=== PATIENT | male | born 1970 | race Caucasian/White ===

== ENCOUNTER 2018-03-17 12:13 | Observation (INO) | payer MEDICARE ==
[2018-03-17] VITALS (8 sets, daily range): BP systolic 107–129; BP diastolic 72–87; PULSE 61–83; RESP 16–20; TEMP 97.9–98.3; O2SAT 94–98
[~2018-03-17] VITALS: Ht 182.9 cm; Wt 69.0 kg
[~2018-03-17 12:13] MED LIST: ADVA250A INH; ALBU1AER INH; ATAZ1TAB PO; DUONI NEB; LEVA500T PO; METH500T3 PO; TRUVTAB2 PO
[2018-03-17] MEDS ORDERED: ABAC1TAB3 PO (12:22)
[2018-03-17] MEDS ORDERED: SODIUM CHLOR 0.9% 1000 ML INJ 1,000 ML IV SCH (12:22)
[2018-03-17] MEDS ORDERED: PANTOPRAZOLE SODIUM 40 MG VIAL IVP ONE (12:30)
[2018-03-17] MEDS ORDERED: SODIUM CHLORIDE 0.9% FLUSH 10 ML FLUSH IVF PRN ×2 (12:30)
--- NOTE | 2018-03-17 12:51 | RADRPT ---
EXAM DATE/TIME: 03/17/2018 12:37 [facility] COMPARISON: CHEST SINGLE AP, April 30, 2016, 23:49. INDICATIONS : Short of breath. MEDICAL HISTORY : Chronic obstructive pulmonary disease. SURGICAL HISTORY : None. ENCOUNTER: Initial ACUITY: 2 days PAIN SCORE: 8/10 LOCATION: Bilateral chest FINDINGS: A single view of the chest demonstrates the lungs to be symmetrically aerated without evidence of mas s, infiltrate or effusion. The cardiomediastinal contours are unremarkable. Osseous structures are intact. Multiple surgical clips in the upper left abdomen status post apparent splenectomy. CONCLUSION: Stable appearance with no acute disease. Zackery Infante MD on March 17, 2018 at 12:49 Board Certified Radiologist. This report was verified electronically.
[2018-03-17 12:53] LABS: INTERNATIONAL NORMALIZED RATIO 1.1 RATIO; PROTHROMBIN TIME - PATIENT 10.9 SEC (9.8-11.6)
--- NOTE | 2018-03-17 13:03 | PD ---
HPI Chief Complaint: GI Complaint Time Seen by Provider: 12:22 Travel History International Travel<30 days: No Contact w/Intl Traveler<30days: No Traveled to known affect area: No History of Present Illness HPI Patient comes emergency department complaining of syncopal episode that occurred shortly prior to arrival. Patient reports he has had a couple syncopal episodes in the past several days. Patient reports feeling fatigue and bright red blood per rectum. Patient reports had similar in the past secondary to thrombocytopenia. Patient reports he is HIV and hepatitis C positive. Patient reports taking his medications as prescribed and his last viral load was undetectable per patient. Patient complaining of chronic right upper quadrant pain is gotten progressively worse over the past couple of days. Describes pain is a sharp stabbing pain is worse to palpation. Reports pain radiates throughout his abdomen. Denies any nausea, vomiting, chest pain or shortness breath, fevers, headache, neck pain, or change in bladder. PFSH Past Medical History Arthritis: Yes Asthma: No Autoimmune Disease: Yes (HIV) Blood Disorders: Yes (THROMBOCYTOPENIA, HIV +) Anxiety: Yes Depression: No Heart Rhythm Problems: No Cancer: No Cardiovascular Problems: Yes High Cholesterol: No Chemotherapy: No Chest Pain: Yes Congestive Heart Failure: No COPD: Yes Cerebrovascular Accident: No Diabetes: No Diminished Hearing: No Endocrine: No Gastrointestinal Disorders: No GERD: No Glaucoma: No Genitourinary: No Headaches: No Hepatitis: Yes (C) Hiatal Hernia: No Hypertension: No Immune Disorder: Yes (HIV ) Implanted Vascular Access Dvce: No Kidney Stones: No Musculoskeletal: Yes Neurologic: Yes Psychiatric: Yes Reproductive: No Respiratory: Yes (COPD) Immunizations Current: Yes Migraines: Yes Myocardial Infarction: No Pneumonia: Yes Radiation Therapy: No Renal Failure: No Seizures: No Sickle Cell Disease: No Sleep Apnea: Yes Thyroid Disease: No Ulcer: No Tetanus Vaccination: < 5 Years Influenza Vaccination: Yes PNEUMOCCOCAL Vaccine (Year): 2 Past Surgical History Abdominal Surgery: Yes (SPLENECTOMY) AICD: No Arteriovenous Shunt: No Cardiac Surgery: No Ear Surgery: No Endocrine Surgery: No Eye Surgery: No Genitourinary Surgery: No Gynecologic Surgery: No Insulin Pump: No Joint Replacement: No Neurologic Surgery: No Oral Surgery: No Pacemaker: No Thoracic Surgery: Yes Other Surgery: Yes (spleenectomy ) Social History Alcohol Use: Yes ("occasionally" ) Tobacco Use: Yes (1 PPD ) Substance Use: Yes (marijuana use daily ) Allergies-Medications (Allergen,Severity, Reaction): Coded Allergies: No Known Allergies (Unverified , 04/30/16) Reported Meds & Prescriptions Reported Meds & Active Scripts Active Reported Triumeq (Nxpebbat-Vhqylwexcmwd-Xwrvqxrmoo) 600-50-300 Mg Tab 1 Tab PO DAILY Hazardous agent; use appropriate precautions for handling & disposal. Review of Systems Except as stated in HPI: all other systems reviewed are Neg Physical Exam Narrative GENERAL: Well-developed, well nourished, in no acute distress, and non-ill appearing. SKIN: Focused skin assessment warm and dry. HEAD: Atraumatic. Normocephalic. EYES: Pupils equal and round. EOMI. No scleral icterus. No injection or drainage. ENT: No nasal bleeding or discharge. Mucous membranes pink and moist. NECK: Trachea midline. Supple. No nuclear rigidity. CARDIOVASCULAR: Regular rate and rhythm. No murmur appreciated. RESPIRATORY: No accessory muscle use. No respiratory distress. Clear to auscultation. Breath sounds equal bilaterally. GASTROINTESTINAL: Abdomen soft, nondistended, and no guarding. Hepatic and splenic margins not palpable. Normal bowel sounds x4. No pulsatile mass. Patient reports tenderness palpation throughout. MUSCULOSKELETAL: No obvious deformities. No clubbing. No cyanosis. No edema. Full range of motion. NEUROLOGICAL: Awake and alert. No obvious cranial nerve deficits. Motor grossly within normal limits. Normal speech. PSYCHIATRIC: Appropriate mood and affect; insight and judgment normal. Data Data Last Documented VS Vital Signs Date Time Temp Pulse Resp B/P (MAP) Pulse Ox O2 Delivery O2 Flow Rate FiO2 03/17/18 14:56 78 16 116/72 (87) 95 Room Air 03/17/18 12:17 98.3 Orders Orders Complete Blood Count With Diff (03/17/18 12:22) Comprehensive Metabolic Panel (03/17/18 12:22) Lipase (03/17/18 12:22) Ammonia (03/17/18 12:22) Prothrombin Time / Inr (Pt) (03/17/18 12:22) Act Partial Throm Time (Ptt) (03/17/18 12:22) Alcohol (Ethanol) (03/17/18 12:22) Urinalysis - C+S If Indicated (03/17/18 12:22) Type And Screen (03/17/18 12:22) Chest, Single Ap (03/17/18 12:22) Ecg Monitoring (03/17/18 12:22) Iv Access Insert/Monitor (03/17/18 12:22) Oximetry (03/17/18 12:22) Pantoprazole Inj (Protonix Inj) (03/17/18 12:30) Sodium Chlor 0.9% 1000 Ml Inj (Ns 1000 M (03/17/18 12:22) Sodium Chloride 0.9% Flush (Ns Flush) (03/17/18 12:30) Electrocardiogram (03/17/18 12:22) Ckmb (Isoenzyme) Profile (03/17/18 12:22) Troponin I (03/17/18 12:22) Sodium Chloride 0.9% Flush (Ns Flush) (03/17/18 12:30) Ct Brain W/O Iv Contrast(Rout) (03/17/18 ) Ct Abd/Pel W/O Iv Contrast (03/17/18 12:54) CKMB (03/17/18 12:30) CKMB% (03/17/18 12:30) Drug Screen, Random Urine (03/17/18 13:48) Admit Order (Ed Use Only) (03/17/18 ) Disciplinary Hearing Officer / Telemetry EVANGELINA.Q8H (03/17/18 15:21) Vital Signs (Adult) Q4H (03/17/18 15:21) Activity Bed Rest (03/17/18 15:21) Notify Dr: Other (03/17/18 15:21) Labs Laboratory Tests Test 03/17/18 12:30 White Blood Count 11.8 TH/MM3 Red Blood Count 5.93 MIL/MM3 Hemoglobin 18.3 GM/DL Hematocrit 53.5 % Mean Corpuscular Volume 90.3 FL Mean Corpuscular Hemoglobin 30.9 PG Mean Corpuscular Hemoglobin Concent 34.2 % Red Cell Distribution Width 13.8 % Platelet Count 32 TH/MM3 Mean Platelet Volume 10.5 FL Neutrophils (%) (Auto) 56.1 % Lymphocytes (%) (Auto) 27.7 % Monocytes (%) (Auto) 11.9 % Eosinophils (%) (Auto) 3.5 % Basophils (%) (Auto) 0.8 % Neutrophils # (Auto) 6.6 TH/MM3 Lymphocytes # (Auto) 3.3 TH/MM3 Monocytes # (Auto) 1.4 TH/MM3 Eosinophils # (Auto) 0.4 TH/MM3 Basophils # (Auto) 0.1 TH/MM3 CBC Comment AUTO DIFF Differential Comment AUTO DIFF CONFIRMED Prothrombin Time 10.9 SEC Prothromb Time International Ratio 1.1 RATIO Activated Partial Thromboplast Time 31.4 SEC Blood Urea Nitrogen 10 MG/DL Creatinine 1.36 MG/DL Random Glucose 72 MG/DL Total Protein 7.0 GM/DL Albumin 3.3 GM/DL Calcium Level 8.1 MG/DL Alkaline Phosphatase 141 U/L Aspartate Amino Transf (AST/SGOT) 56 U/L Alanine Aminotransferase (ALT/SGPT) 37 U/L Total Bilirubin 0.6 MG/DL Sodium Level 139 MEQ/L Potassium Level 3.8 MEQ/L Chloride Level 108 MEQ/L Carbon Dioxide Level 18.6 MEQ/L Anion Gap 12 MEQ/L Estimat Glomerular Filtration Rate 55 ML/MIN Ammonia 37 MCMOL/L Total Creatine Kinase 267 U/L Creatine Kinase MB 5.4 NG/ML Troponin I LESS THAN 0.02 NG/ML Lipase 203 U/L Ethyl Alcohol Level 29 MG/DL MDM Medical Decision Making Medical Screen Exam Complete: Yes Emergency Medical Condition: Yes Interpretation(s) EKG reviewed by Dr. Kaye shows sinus rhythm ventricular rate of 75. No STEMI. Differential Diagnosis GI bleed, syncope, ITP, substance abuse, closed head injury, intracranial hemorrhage Narrative Course Patient was seen and examined. IV was established patient placed on cardiac monitoring. Initial laboratory radiological studies were ordered. Patient was hydrated with IV fluids and given IV Protonix. Discussed patient with Dr. Kaye , who saw and evaluated patient and is in agreement plan of care and disposition. Discussed all findings with the exception of urinalysis, which patient has not provide a sample of yet, and plan of care with patient. Patient is agreeable for admission. All questions were answered. Discussed patient with hospitalist who is agreeable to admit the patient. Patient remained stable throughout ED course. HemaPrompt Point of Care Internal Pos. & Neg. Controls: Passed Fecal Specimen Occult Blood: Negative Comment Verbal consent was obtained. Digital rectal exam was performed. Stool specimen applied and test interpreted between 1 and 3 minutes of application and the result was negative. Internal Controls: Both positive and negative controls were validated. insurance account executive Estefany was present during this exam. External hemorrhoids were noted. Physician Communication Physician Communication [id number] Ramos, who is agreeable to admit the patient. Diagnosis Primary Impression: Syncope Qualified Codes: R55 - Syncope and collapse Additional Impressions: Hematochezia Chronic ITP (idiopathic thrombocytopenia) Admitting Information Admitting Physician Requests: Observation Aubrey Henry March 17, 2018 13:03
[2018-03-17 13:06] LABS: AUTOMATED NEUTROPHIL # 6.6 TH/MM3 (1.8-7.7); BASOPHIL # 0.1 TH/MM3 (0-0.2); BASOPHIL % 0.8 % (0.0-2.0); EOSINOPHIL # 0.4 TH/MM3 (0-0.4); EOSINOPHIL % 3.5 % (0.0-4.0); HEMATOCRIT 53.5 % (39.0-51.0); HEMOGLOBIN 18.3 GM/DL (13.0-17.0); LYMPH % 27.7 % (9.0-44.0); LYMPHOCYTE # 3.3 TH/MM3 (1.0-4.8); MEAN CELL VOLUME 90.3 FL (80.0-100.0); MEAN CORPUSCULAR HEMOGLOBIN 30.9 PG (27.0-34.0); MEAN CORPUSCULAR HGB CONC 34.2 % (32.0-36.0); MEAN PLATELET VOLUME 10.5 FL (7.0-11.0); MONO % 11.9 % (0.0-8.0); MONOCYTE # 1.4 TH/MM3 (0-0.9); NEUT % 56.1 % (16.0-70.0); PLATELET COUNT 32 TH/MM3 (150-450); RED BLOOD COUNT 5.93 MIL/MM3 (4.50-5.90); RED CELL DISTRIBUTION WIDTH 13.8 % (11.6-17.2); WHITE BLOOD COUNT 11.8 TH/MM3 (4.0-11.0)
[2018-03-17 13:09] LABS: ALT (GPT) 37 U/L (12-78)
[2018-03-17 13:12] LABS: ALKALINE PHOSPHATASE 141 U/L (45-117); TOTAL BILIRUBIN ADULT 0.6 MG/DL (0.2-1.0); TROPONIN I LESS THAN 0.02 NG/ML (0.02-0.05)
[2018-03-17 13:14] LABS: ALBUMIN 3.3 GM/DL (3.4-5.0); AST (GOT) 56 U/L (15-37); BICARBONATE 18.6 MEQ/L (21.0-32.0); BLOOD UREA NITROGEN 10 MG/DL (7-18); CALCIUM 8.1 MG/DL (8.5-10.1); CHLORIDE 108 MEQ/L (98-107); CREATININE 1.36 MG/DL (0.60-1.30); GLOMERULAR FILTRATION RATE 55 ML/MIN (>89); GLUCOSE,RANDOM 72 MG/DL (74-106); SODIUM (NA) 139 MEQ/L (136-145)
--- NOTE | 2018-03-17 14:05 | PD ---
Physical Exam Date Seen by Provider: March 17, 2018 Data Data Last Documented VS Vital Signs Date Time Temp Pulse Resp B/P (MAP) Pulse Ox O2 Delivery O2 Flow Rate FiO2 03/17/18 12:25 94 Room Air 03/17/18 12:17 98.3 83 20 129/87 (101) Orders Orders Complete Blood Count With Diff (03/17/18 12:22) Comprehensive Metabolic Panel (03/17/18 12:) Lipase (03/17/18 12:) Ammonia (03/17/18:) Prothrombin Time / Inr (Pt) (03/17/18 12:) Act Partial Throm Time (Ptt) (03/17/18 12:) Alcohol (Ethanol) (03/17/18 12:) Urinalysis - C+S If Indicated (03/17/18 12:) Type And Screen (03/17/18 12:) Chest, Single Ap (03/17/18 12:) Ecg Monitoring (03/17/18 12:22) Iv Access Insert/Monitor (03/17/18 12:) Oximetry (03/17/18 12:22) Pantoprazole Inj (Protonix Inj) (03/17/18 12:30) Sodium Chlor 0.9% 1000 Ml Inj (Ns 1000 M (03/17/18 12:22) Sodium Chloride 0.9% Flush (Ns Flush) (03/17/18 12:30) Electrocardiogram (03/17/18 12:22) Ckmb (Isoenzyme) Profile (03/17/18 12:22) Troponin I (03/17/18 12:22) Sodium Chloride 0.9% Flush (Ns Flush) (03/17/18 12:30) Ct Brain W/O Iv Contrast(Rout) (03/17/18 ) Ct Abd/Pel W/O Iv Contrast (03/17/18 12:54) CKMB (03/17/18 12:30) CKMB% (03/17/18 12:30) Drug Screen, Random Urine (03/17/18 13:48) Labs Laboratory Tests Test 03/17/18 12:30 White Blood Count 11.8 TH/MM3 Red Blood Count 5.93 MIL/MM3 Hemoglobin 18.3 GM/DL Hematocrit 53.5 % Mean Corpuscular Volume 90.3 FL Mean Corpuscular Hemoglobin 30.9 PG Mean Corpuscular Hemoglobin Concent 34.2 % Red Cell Distribution Width 13.8 % Platelet Count 32 TH/MM3 Mean Platelet Volume 10.5 FL Neutrophils (%) (Auto) 56.1 % Lymphocytes (%) (Auto) 27.7 % Monocytes (%) (Auto) 11.9 % Eosinophils (%) (Auto) 3.5 % Basophils (%) (Auto) 0.8 % Neutrophils # (Auto) 6.6 TH/MM3 Lymphocytes # (Auto) 3.3 TH/MM3 Monocytes # (Auto) 1.4 TH/MM3 Eosinophils # (Auto) 0.4 TH/MM3 Basophils # (Auto) 0.1 TH/MM3 CBC Comment AUTO DIFF Differential Comment AUTO DIFF CONFIRMED Prothrombin Time 10.9 SEC Prothromb Time International Ratio 1.1 RATIO Activated Partial Thromboplast Time 31.4 SEC Blood Urea Nitrogen 10 MG/DL Creatinine 1.36 MG/DL Random Glucose 72 MG/DL Total Protein 7.0 GM/DL Albumin 3.3 GM/DL Calcium Level 8.1 MG/DL Alkaline Phosphatase 141 U/L Aspartate Amino Transf (AST/SGOT) 56 U/L Alanine Aminotransferase (ALT/SGPT) 37 U/L Total Bilirubin 0.6 MG/DL Sodium Level 139 MEQ/L Potassium Level 3.8 MEQ/L Chloride Level 108 MEQ/L Carbon Dioxide Level 18.6 MEQ/L Anion Gap 12 MEQ/L Estimat Glomerular Filtration Rate 55 ML/MIN Ammonia 37 MCMOL/L Total Creatine Kinase 267 U/L Creatine Kinase MB 5.4 NG/ML Troponin I LESS THAN 0.02 NG/ML Lipase 203 U/L Ethyl Alcohol Level 29 MG/DL [facility] Medical Record Reviewed: Yes Supervised Visit with RICAROD: Yes Narrative Course I, Dr. Kaye, have reviewed the advance practice practitioner's documentation and am in agreement, met with the patient face to face, made the diagnosis, and the medical decision making was done by me. *My assessment and Findings: Syncope -patient is a 48-year-old male with history of hepatitis C, end-stage liver disease, HIV, thrombocytopenia secondary to ITP, presents to ER after syncopal episode today. Reports bright red blood in stools, reports that today , he has been having abdominal pain - pain worse to upper abdomen. CBC & BMP Diagram 03/17/18 12:30 Total Protein 7.0, Albumin 3.3 L, Calcium Level 8.1 L, Alkaline Phosphatase 141 H, Aspartate Amino Transf (AST/SGOT) 56 H, Alanine Aminotransferase (ALT/SGPT) 37, Total Bilirubin 0.6 Labs are reviewed, CT's pending Marva Kaye DO March 17, 2018 14:05
--- NOTE | 2018-03-17 14:32 | RADRPT ---
EXAM DATE/TIME: 03/17/2018 13:57 [facility] COMPARISON: CT ABDOMEN & PELVIS W CONTRAST, April 23, 2016, 21:10. INDICATIONS : Syncopal episode RADIATION DOSE: 56.35 CTDIvol (mGy) MEDICAL HISTORY : Cardiovascular disease. Hepatitis C. SURGICAL HISTORY : Splenectomy. ENCOUNTER: Initial ACUITY: 1 day PAIN SCALE: 0/10 LOCATION: cranial TECHNIQUE: Multiple contiguous axial images were obtained of the head. Using automated exposure control and adj ustment of the mA and/or kV according to patient size, radiation dose was kept as low as reasonably a chievable to obtain optimal diagnostic quality images. DICOM format image data is available electro nically for review and comparison. FINDINGS: CEREBRUM: The ventricles are normal for age. No evidence of midline shift, mass lesion, hemorrhage or acute in farction. No extra-axial fluid collections are seen. POSTERIOR FOSSA: The cerebellum and brainstem are intact. The 4th ventricle is midline. The cerebellopontine angle i s unremarkable. EXTRACRANIAL: The visualized portion of the orbits is intact. SKULL: The calvaria is intact. No evidence of skull fracture. CONCLUSION: 1. No acute intracranial abnormality identified. Rg Foreman MD on March 17, 2018 at 14:29 Board Certified Radiologist. This report was verified electronically.
--- NOTE | 2018-03-17 14:48 | RADRPT ---
EXAM DATE/TIME: 03/17/2018 13:59 [facility] COMPARISON: CT ABDOMEN & PELVIS W CONTRAST, April 23, 2016, 21:10. INDICATIONS : Blood in stool since yesterday ORAL CONTRAST: No oral contrast ingested. RADIATION DOSE: 6.64 CTDIvol (mGy) MEDICAL HISTORY : Cardiovascular disease. Hepatitis C. SURGICAL HISTORY : Splenectomy. ENCOUNTER: Initial ACUITY: 1 day PAIN SCALE: 0/10 LOCATION: Bilateral abdomen TECHNIQUE: Volumetric scanning of the abdomen and pelvis was performed. Using automated exposure control and ad justment of the mA and/or kV according to patient size, radiation dose was kept as low as reasonably achievable to obtain optimal diagnostic quality images. DICOM format image data is available electro nically for review and comparison. FINDINGS: LOWER LUNGS: There is dependent atelectasis bilaterally. LIVER: Homogeneous density without lesion. There is no dilation of the biliary tree. No calcified gallston es. SPLEEN: Multiple clips are present in the left upper quadrant reportedly related to splenectomy. There is res idual splenic tissue in the left upper quadrant, stable from the prior examination. PANCREAS: Within normal limits. KIDNEYS: Normal in size and shape. There is no mass, stone, or hydronephrosis. ADRENAL GLANDS: Within normal limits. VASCULAR: There is no aortic aneurysm. There is mild atherosclerotic disease. BOWEL/MESENTERY: The stomach, small bowel, and colon demonstrate no acute abnormality. There is no free intraperitone al air or fluid. ABDOMINAL WALL: Within normal limits. RETROPERITONEUM: There is no lymphadenopathy. BLADDER: No wall thickening or mass. REPRODUCTIVE: Within normal limits. INGUINAL: There is no lymphadenopathy or hernia. MUSCULOSKELETAL: There are mild degenerative changes of the lumbar spine. CONCLUSION: 1. No acute finding is identified on this noncontrast examination to explain the clinical symptoms. 2. Mild atherosclerotic disease. Jaden Adair MD on March 17, 2018 at 14:37 Board Certified Radiologist. This report was verified electronically.
[2018-03-17] MEDS ORDERED: NALOXONE HCL 0.4 MG/ML AMP IV PUSH PRN (16:15)
[2018-03-17] MEDS ORDERED: MAGNESIUM HYDROXIDE SUSP 30 ML CUP PO PRN (16:15)
[2018-03-17] MEDS ORDERED: SENNOSIDES 8.6 MG TAB PO PRN (16:15)
[2018-03-17] MEDS ORDERED: ONDANSETRON HCL 4 MG/2 ML VIAL IVP PRN (16:15)
[2018-03-17] MEDS ORDERED: LACTULOSE SYRUP 20 GM/30 ML CUP PO PRN (16:15)
[2018-03-17] MEDS ORDERED: BISACODYL 10 MG SUPP RECTAL PRN (16:15)
[2018-03-17] MEDS: NS + KCL 20 MEQ INJ 1,000 ML IV SCH (17:11)
--- NOTE | 2018-03-17 17:36 | HHI.HP ---
[facility]ician No Primary Care Physician Admission Diagnosis Syncope, hematochezia, ITP Diagnoses: (1) Acute kidney injury (2) Abdominal pain (3) Hematochezia (4) Chronic ITP (idiopathic thrombocytopenia) (5) Syncope (6) Hepatitis C (7) HIV (human immunodeficiency virus infection) (8) Tobacco use Chief Complaint: Syncope Travel History International Travel<30 Days: No Contact w/Intl Traveler <30 Da: No Traveled to Known Affected Are: No History of Present Illness The patient is a 48 year-old male who presented to the emergency department following a syncopal episode. He states that he has "blacked out" about 5 times in the past 3 days. He denies hitting his head. He states that the episodes occur when he stands up to walk. He feels lightheaded and then passes out. He states that he has not been eating well over the past week or so. He has had no appetite. He has had some nausea, but no vomiting. He denies diarrhea or constipation, but has had some bright red blood in his stool the last couple days. He has a history of hepatitis C and HIV, as well as chronic thrombocytopenia. He reports a weight loss of 10 pounds in the last week. He has diffuse abdominal pain, worse in the upper abdomen. Review of Systems Constitutional: COMPLAINS OF: Weight loss, DENIES: Fever, Chills, Night Sweats Eyes: DENIES: Blurred vision, Vision loss Ears, nose, mouth, throat: DENIES: Hearing loss Respiratory: DENIES: Cough, Wheezing, Sputum production, Shortness of breath Cardiovascular: COMPLAINS OF: Syncope, DENIES: Chest pain, Palpitations, Dyspnea on Exertion, Lower Extremity Edema Gastrointestinal: COMPLAINS OF: Bloody stools, Nausea, DENIES: Abdominal pain, Constipation, Diarrhea, Vomiting Genitourinary: DENIES: Urinary frequency, Urinary incontinence, Urgency, Hematuria, Dysuria, Nocturia Musculoskeletal: DENIES: Joint pain, Muscle aches Integumentary: DENIES: Pruritus, Rash Hematologic/lymphatic: DENIES: Bruising Neurologic: DENIES: Headache Past Family Social History Past Medical History HIV Thrombocytopenia Hepatitis C Anxiety Arthritis COPD Past Surgical History Splenectomy Left ankle surgery Reported Medications Triumeq (Xbhqmxzy-Vcqtluicvyto-Vdwjqxzffk) 600-50-300 Mg Tab 1 Tab PO DAILY Allergies: Coded Allergies: No Known Allergies (Unverified Allergy, Unknown, 03/17/18) Family History Denies significant family medical history Social History Smokes 1 pack per day. Admits to marijuana use. Does also admit to using cocaine last night. Reports a remote history of IV drug abuse, but not for "many years". Reports occasional alcohol use. Physical Exam Vital Signs Vital Signs Date Time Temp Pulse Resp B/P (MAP) Pulse Ox O2 Delivery O2 Flow Rate FiO2 03/17/18 16:31 03/17/18 14:56 78 16 116/72 (87) 95 Room Air 03/17/18 12:25 94 Room Air 03/17/18 12:17 98.3 83 20 129/87 (101) 94 Physical Exam GENERAL: Thin male in no acute distress. HEENT: Normocephalic, atraumatic. Pupils equal, round and reactive. Extraocular movements intact. No scleral icterus. No injection or drainage. Oropharynx is clear. Mucous membranes are somewhat dry. CARDIOVASCULAR: Regular rate and rhythm without murmurs, gallops, or rubs. RESPIRATORY: Clear to auscultation. No wheezes, rales, or rhonchi. Breathing is non-labored. GASTROINTESTINAL: Abdomen soft, nondistended. Tender to palpation diffusely without rebound or guarding, more tender in the upper abdomen. EXTREMITIES: No lower extremity edema. No calf tenderness. PSYCH: Alert and oriented x 3. Laboratory Laboratory Tests Test 03/17/18 12:30 White Blood Count 11.8 Red Blood Count 5.93 Hemoglobin 18.3 Hematocrit 53.5 Mean Corpuscular Volume 90.3 Mean Corpuscular Hemoglobin 30.9 Mean Corpuscular Hemoglobin Concent 34.2 Red Cell Distribution Width 13.8 Platelet Count 32 Mean Platelet Volume 10.5 Neutrophils (%) (Auto) 56.1 Lymphocytes (%) (Auto) 27.7 Monocytes (%) (Auto) 11.9 Eosinophils (%) (Auto) 3.5 Basophils (%) (Auto) 0.8 Neutrophils # (Auto) 6.6 Lymphocytes # (Auto) 3.3 Monocytes # (Auto) 1.4 Eosinophils # (Auto) 0.4 Basophils # (Auto) 0.1 CBC Comment AUTO DIFF Differential Comment AUTO DIFF CONFIRMED Prothrombin Time 10.9 Prothromb Time International Ratio 1.1 Activated Partial Thromboplast Time 31.4 Blood Urea Nitrogen 10 Creatinine 1.36 Random Glucose 72 Total Protein 7.0 Albumin 3.3 Calcium Level 8.1 Alkaline Phosphatase 141 Aspartate Amino Transf (AST/SGOT) 56 Alanine Aminotransferase (ALT/SGPT) 37 Total Bilirubin 0.6 Sodium Level 139 Potassium Level 3.8 Chloride Level 108 Carbon Dioxide Level 18.6 Anion Gap 12 Estimat Glomerular Filtration Rate 55 Ammonia 37 Total Creatine Kinase 267 Creatine Kinase MB 5.4 Troponin I LESS THAN 0.02 Lipase 203 Ethyl Alcohol Level 29 Result Diagram: 03/17/18 1230 03/17/18 1230 Imaging Last Impressions Abdomen/Pelvis CT 03/17/18 1254 Signed Impressions: Service Date/Time: Saturday, March 17, 2018 13:59 - CONCLUSION: 1. No acute finding is identified on this noncontrast examination to explain the clinical symptoms. 2. Mild atherosclerotic disease. Jaden Adair MD Chest X-Ray 03/17/18 1222 Signed Impressions: Service Date/Time: Saturday, March 17, 2018 12:37 - CONCLUSION: Stable appearance with no acute disease. Zackery Infante MD Head CT 03/17/18 0000 Signed Impressions: Service Date/Time: Saturday, March 17, 2018 13:57 - CONCLUSION: 1. No acute intracranial abnormality identified. Rg Foreman MD Caprini VTE Risk Assessment Caprini VTE Risk Assessment: No/Low Risk (score <= 1) Caprini Risk Assessment Model Point Value = 1 Point Value = 2 Point Value = 3 Point Value = 5 Age 41-60 Minor surgery BMI > 25 kg/m2 Swollen legs Varicose veins or History of unexplained or recurrent spontaneous Oral contraceptives or hormone replacement Sepsis (< 1 month) Serious lung disease, including pneumonia (< 1 month) Abnormal pulmonary function Acute myocardial infarction Congestive heart failure (< 1 month) History of inflammatory bowel disease Medical patient at bed rest Age 61-74 Arthroscopic surgery Major open surgery (> 45 min) Laparoscopic surgery (> 45 min) Malignancy Confined to bed (> 72 hours) Immobilizing plaster cast Central venous access Age >= 75 History of VTE Family history of VTE Factor V Leiden Prothrombin [id number] Lupus anticoagulant Anticardiolipin antibodies Elevated serum homocysteine Heparin-induced thrombocytopenia Other congenital or acquired thrombophilia Stroke (< 1 month) Elective arthroplasty Hip, pelvis, or leg fracture Acute spinal cord injury (< 1 month) Prophylaxis Regimen Total Risk Factor Score Risk Level Prophylaxis Regimen 0-1 Low Early ambulation 2 Moderate Order ONE of the following: *Sequential Compression Device (SCD) *Heparin 5000 units SQ BID 3-4 Higher Order ONE of the following medications: *Heparin 5000 units SQ TID *Enoxaparin/Lovenox 40 mg SQ daily (WT < 150 kg, CrCl > 30 mL/min) *Enoxaparin/Lovenox 30 mg SQ daily (WT < 150 kg, CrCl > 10-29 mL/min) *Enoxaparin/Lovenox 30 mg SQ BID (WT < 150 kg, CrCl > 30 mL/min) AND/OR *Sequential Compression Device (SCD) 5 or more Highest Order ONE of the following medications: *Heparin 5000 units SQ TID (Preferred with Epidurals) *Enoxaparin/Lovenox 40 mg SQ daily (WT < 150 kg, CrCl > 30 mL/min) *Enoxaparin/Lovenox 30 mg SQ daily (WT < 150 kg, CrCl > 10-29 mL/min) *Enoxaparin/Lovenox 30 mg SQ BID (WT < 150 kg, CrCl > 30 mL/min) AND *Sequential Compression Device (SCD) Assessment and Plan Assessment and Plan 1. Syncopal episode: Possibly secondary to dehydration. Check echocardiogram. Monitor on telemetry. Check serial cardiac enzymes and EKGs. 2. Acute kidney injury: Patient appears to be dehydrated. He has had poor oral intake over the past week with decreased appetite, nausea, abdominal pain, and weight loss. Start IV fluids. Monitor BUN and creatinine. 3. Thrombocytopenia: Patient reports chronic ITP. Monitor labs. Monitor for worsening bleeding episodes. 4. Hematochezia: Patient reports bright red blood with bowel movements. Consult GI. 5. HIV: Continue home medications. 6. Hepatitis C: Patient reports no treatment. GI consultation requested. 7. DVT prophylaxis: SCDs, KARTHIKEYAN knox. Avoid chemical prophylaxis secondary to hematochezia, thrombocytopenia. 8. Polysubstance abuse: He admits to marijuana and cocaine use. Patient was counseled. 9. Tobacco abuse: Patient was counseled regarding smoking cessation. Problem Qualifiers (1) Syncope: Qualified Codes: R55 - Syncope and collapse Juan Carlos Ramos MD March 17, 2018 17:36
[2018-03-17] MEDS ORDERED: HYDR-3366 PO (18:04)
[2018-03-17] MEDS ORDERED: ALBUAER3 INH (18:29)
[2018-03-17] MEDS ORDERED: ADVA250A INH ×2 (18:29)
[2018-03-17] MEDS ORDERED: CYCL5TAB PO (18:29)
[2018-03-17] MEDS ORDERED: DIAZ10 PO (18:29)
[2018-03-17 19:31] LABS: TROPONIN I LESS THAN 0.02 NG/ML (0.02-0.05)
[2018-03-17] MEDS: DOCUSATE SODIUM 50 MG/SENNA 8.6 MG TAB PO SCH (21:36)
--- NOTE | 2018-03-17 22:54 | EKG ---
Date Performed: 03/17/2018 Time Performed: 12:55:07 PTAGE: 48 years EKG: Sinus rhythm BORDERLINE RIGHT AXIS DEVIATION SEPTAL MYOCARDIAL INFARCTION When compared to previous tracing, ante rior T wave changes Seen on previous tracing, are less prominant. ABNORMAL ECG PREVIOUS TRACING : 05/01/2016 00.50 DOCTOR: Adal Carmona Interpretating Date/Time 03/17/2018 17:50:30
[2018-03-18] VITALS (9 sets, daily range): BP systolic 112–132; BP diastolic 72–93; PULSE 56–76; RESP 16–19; TEMP 97.6–99.1; O2SAT 92–96
[2018-03-18 02:51] LABS: TROPONIN I LESS THAN 0.02 NG/ML (0.02-0.05)
[2018-03-18] MEDS: NS + KCL 20 MEQ INJ 1,000 ML IV SCH ×2 (05:11→18:49)
[2018-03-18 07:55] LABS: AUTOMATED NEUTROPHIL # 3.6 TH/MM3 (1.8-7.7); BASOPHIL # 0.1 TH/MM3 (0-0.2); BASOPHIL % 1.4 % (0.0-2.0); EOSINOPHIL # 0.5 TH/MM3 (0-0.4); EOSINOPHIL % 5.5 % (0.0-4.0); HEMATOCRIT 51.1 % (39.0-51.0); HEMOGLOBIN 17.4 GM/DL (13.0-17.0); LYMPH % 34.4 % (9.0-44.0); MEAN CELL VOLUME 90.2 FL (80.0-100.0); MEAN CORPUSCULAR HEMOGLOBIN 30.7 PG (27.0-34.0); MEAN PLATELET VOLUME 10.3 FL (7.0-11.0); MONO % 16.6 % (0.0-8.0); MONOCYTE # 1.4 TH/MM3 (0-0.9); NEUT % 42.1 % (16.0-70.0); PLATELET COUNT 30 TH/MM3 (150-450); RED BLOOD COUNT 5.67 MIL/MM3 (4.50-5.90); RED CELL DISTRIBUTION WIDTH 13.8 % (11.6-17.2); WHITE BLOOD COUNT 8.7 TH/MM3 (4.0-11.0)
[2018-03-18 08:27] LABS: ALBUMIN 2.6 GM/DL (3.4-5.0); ALKALINE PHOSPHATASE 121 U/L (45-117); ALT (GPT) 33 U/L (12-78); AST (GOT) 45 U/L (15-37); BICARBONATE 22.2 MEQ/L (21.0-32.0); BLOOD UREA NITROGEN 14 MG/DL (7-18); CALCIUM 7.7 MG/DL (8.5-10.1); CHLORIDE 112 MEQ/L (98-107); GLOMERULAR FILTRATION RATE 79 ML/MIN (>89); GLUCOSE,RANDOM 74 MG/DL (74-106); SODIUM (NA) 141 MEQ/L (136-145); TOTAL BILIRUBIN ADULT 0.5 MG/DL (0.2-1.0); TOTAL PROTEIN 5.8 GM/DL (6.4-8.2)
--- NOTE | 2018-03-18 10:15 | PD.CONS ---
HPI History of Present Illness This is a 48 year old M with PMH significant for HIV with reports of undetectable viral load, Hep C naive to treatment, cirrhosis, chronic ITP with history of splenectomy, and history of GIB. Pt presented to the ER yesterday by [facility] following a syncopal episode at home, pt reports having multiple dizzy episodes and syncopal episodes over the past couple days. At this time pt is complaining of pain to his RUQ area that he states is his liver hurting. States pain is chronic described as aching with intermittent sharp pain. Denies pain in relation to PO intake. He has known cirrhosis and Hepatitis C, treatment naive. Also complaining of chronic nausea, denies emesis. Reports he has been having BRB in his stool for the past couple days, has had this issue in the past when his platelets are really low. Was previously followed by hematology and has been on Nplate and IVIG in the past. Our service has previously followed pt for same and notes that rectal bleeding resolved with resolution of platelet count. Pt also complaining of a 10 lb weight loss over the past two weeks with decrease in appetite. Of note, pt released from nursing home on January 19 after 21 month sentence. Reports history of IVDU, has 2 tattoos both done in nursing home. Admits to continued ETOH use, states has some beer once a week, last ETOH intake was two nights ago. Currently smokes 1 PPD. Also admits to marijuana use, denies any other illicit drugs. Denies family history of colon cancer. (Inessa Lunsford) PFSH Past Medical History HIV Thrombocytopenia Hepatitis C Anxiety Arthritis COPD Past Surgical History Splenectomy Left ankle surgery (Inessa Lunsford) Coded Allergies: bee venom protein (honey bee) (Verified Allergy, Severe, Anaphylaxis, ) No Known Allergies (Unverified Allergy, Unknown, 03/17/18) Family History Denies significant family medical history Social History Smokes 1 pack per day. Admits to marijuana use. Reports a remote history of IV drug abuse, but not for "many years". Reports alcohol use, once a week. (Inessa Lunsford) Review of Systems Gastrointestinal: COMPLAINS OF: Abdominal pain, Bloody stools, Nausea, DENIES: Black stools, Constipation, Diarrhea, Vomiting, Difficulty Swallowing, Odynophagia, Swelling of Abdomen, Heartburn, Hematemesis (Inessa Lunsford) GI Exam Vitals I&O Vital Signs Date Time Temp Pulse Resp B/P (MAP) Pulse Ox O2 Delivery O2 Flow Rate FiO2 03/18/18 08:33 97.8 73 18 117/75 (89) 96 03/18/18 04:21 97.9 56 16 112/76 (88) 93 03/18/18 02:20 62 03/17/18 22:48 97.9 61 16 118/74 (89) 95 03/17/18 20:16 97.9 78 16 107/74 (85) 95 03/17/18 19:21 98 03/17/18 17:29 97.9 68 18 109/79 (89) 96 03/17/18 17:11 95 21 03/17/18 16:31 03/17/18 14:56 78 16 116/72 (87) 95 Room Air 03/17/18 12:25 94 Room Air 03/17/18 12:17 98.3 83 20 129/87 (101) 94 I/O 03/17/18 03/17/18 03/17/18 03/18/18 03/18/18 03/18/18 07:00 15:00 23:00 07:00 15:00 23:00 Intake Total 1000 ml Balance 1000 ml Intake IV Total 1000 ml Imaging Last Impressions Abdomen/Pelvis CT 03/17/18 1254 Signed Impressions: Service Date/Time: Saturday, March 17, 2018 13:59 - CONCLUSION: 1. No acute finding is identified on this noncontrast examination to explain the clinical symptoms. 2. Mild atherosclerotic disease. Jaden Adair MD Chest X-Ray 03/17/18 1222 Signed Impressions: Service Date/Time: Saturday, March 17, 2018 12:37 - CONCLUSION: Stable appearance with no acute disease. Zackery Infante MD Head CT 03/17/18 0000 Signed Impressions: Service Date/Time: Saturday, March 17, 2018 13:57 - CONCLUSION: 1. No acute intracranial abnormality identified. Rg Foreman MD Laboratory Test 03/17/18 12:30 03/17/18 17:41 03/18/18 01:41 03/18/18 07:12 White Blood Count 11.8 TH/MM3 8.7 TH/MM3 Red Blood Count 5.93 MIL/MM3 5.67 MIL/MM3 Hemoglobin 18.3 GM/DL 17.4 GM/DL Hematocrit 53.5 % 51.1 % Mean Corpuscular Volume 90.3 FL 90.2 FL Mean Corpuscular Hemoglobin 30.9 PG 30.7 PG Mean Corpuscular Hemoglobin Concent 34.2 % 34.0 % Red Cell Distribution Width 13.8 % 13.8 % Platelet Count 32 TH/MM3 30 TH/MM3 Mean Platelet Volume 10.5 FL 10.3 FL Neutrophils (%) (Auto) 56.1 % 42.1 % Lymphocytes (%) (Auto) 27.7 % 34.4 % Monocytes (%) (Auto) 11.9 % 16.6 % Eosinophils (%) (Auto) 3.5 % 5.5 % Basophils (%) (Auto) 0.8 % 1.4 % Neutrophils # (Auto) 6.6 TH/MM3 3.6 TH/MM3 Lymphocytes # (Auto) 3.3 TH/MM3 3.0 TH/MM3 Monocytes # (Auto) 1.4 TH/MM3 1.4 TH/MM3 Eosinophils # (Auto) 0.4 TH/MM3 0.5 TH/MM3 Basophils # (Auto) 0.1 TH/MM3 0.1 TH/MM3 CBC Comment AUTO DIFF AUTO DIFF Differential Comment AUTO DIFF CONFIRMED AUTO DIFF CONFIRMED Prothrombin Time 10.9 SEC Prothromb Time International Ratio 1.1 RATIO Activated Partial Thromboplast Time 31.4 SEC Blood Urea Nitrogen 10 MG/DL 14 MG/DL Creatinine 1.36 MG/DL 1.00 MG/DL Random Glucose 72 MG/DL 74 MG/DL Total Protein 7.0 GM/DL 5.8 GM/DL Albumin 3.3 GM/DL 2.6 GM/DL Calcium Level 8.1 MG/DL 7.7 MG/DL Alkaline Phosphatase 141 U/L 121 U/L Aspartate Amino Transf (AST/SGOT) 56 U/L 45 U/L Alanine Aminotransferase (ALT/SGPT) 37 U/L 33 U/L Total Bilirubin 0.6 MG/DL 0.5 MG/DL Sodium Level 139 MEQ/L 141 MEQ/L Potassium Level 3.8 MEQ/L 3.9 MEQ/L Chloride Level 108 MEQ/L 112 MEQ/L Carbon Dioxide Level 18.6 MEQ/L 22.2 MEQ/L Anion Gap 12 MEQ/L 7 MEQ/L Estimat Glomerular Filtration Rate 55 ML/MIN 79 ML/MIN Ammonia 37 MCMOL/L Total Creatine Kinase 267 U/L 211 U/L 176 U/L Creatine Kinase MB 5.4 NG/ML Troponin I LESS THAN 0.02 NG/ML LESS THAN 0.02 NG/ML LESS THAN 0.02 NG/ML Lipase 203 U/L Ethyl Alcohol Level 29 MG/DL Physical Examination HEENT: Normocephalic; atraumatic CHEST: Even/unlabored CARDIAC: RRR ABDOMEN: Soft, nondistended, upper abdominal tenderness; bowel sounds active EXTREMITIES: No clubbing, cyanosis, or edema. SKIN: Normal; no rash; no jaundice. 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 (Inessa Lunsford) Assessment and Plan Plan Assessment: - Hematochezia- reports of BRBPR mixed in the stool for the past couple days. History of GIB secondary to low platelets. States last colonoscopy was done at this facility 3 years ago, I can not find these records in his chart. H/H currently 17.4/51.1 Platelets- 30 INR-1.1 - Chronic ITP- Previously followed by hematology and has been on Nplate and IVIG in the past, per previous records pt has been noncompliant with treatment. History of splenectomy - Cirrhosis with hepatitis C, treatment naive History of IVDU, states no use in multiple years. Has 2 tattoos, both done in nursing home. Denies high risk sexual behavior. Still drinks ETOH, reports once a week, admits to last ETOH was 2 nights ago - Weight loss- reports 10 lbs over the past two weeks, unintentional but reports a poor appetite CT abdomen and pelvis W/O IV contrast (03/17) --> No acute findings are identified on this noncontrast examination to explain the clinical symptoms. Mild arteriosclerotic disease. Liver: Homogeneous density without lesion. There is no dilation of the biliary tree. No calcified gallstones. - HIV- reports recent viral load and was undetectable - Syncopal episodes- reports multiple syncopal episodes over the past couple days. Head CT negative Ammonia-37 Plan: Hepatitis panel Hep C genotype and quant Hematology consult to address platelets At this time no endoscopic procedures, will await hematology recommendations, possible scopes early next week pending recommendations and clinical course Monitor H/H Transfuse as needed AFP Further recommendations based on clinical course Pt has been seen and examined by myself and Dr. Peguero and this note is written on her behalf (Inessa Lunsford) Physician Comments seen, examined agree with above await hematology eval egd/colon tuesday cryoglobulins (America Peguero MD) Inessa Lunsford March 18, 2018 10:15 America Peguero MD March 18, 2018 17:56
[2018-03-18] MEDS: ABACAVIR SULFATE 300 MG TAB PO SCH (10:30)
[2018-03-18] MEDS: DOLUTEGRAVIR SODIUM 50 MG TAB PO SCH (10:30)
[2018-03-18] MEDS: DOCUSATE SODIUM 50 MG/SENNA 8.6 MG TAB PO SCH ×2 (10:30→20:33)
--- NOTE | 2018-03-18 12:29 | HHI.PR ---
Subjective Remarks Follow up for syncope, hematochezia, thrombocytopenia. The patient reports no BM overnight so far. He reports some dizziness upon standing, but denies any near syncopal episodes since his arrival. Denies any chest pain or shortness of breath. He states his abdomen is always sore but is slightly worse recently across bilateral upper quadrants. Denies nausea or vomiting. He tolerated oral intake last night. He has no other medical complaints at this time. Objective Vitals Vital Signs Date Time Temp Pulse Resp B/P (MAP) Pulse Ox O2 Delivery O2 Flow Rate FiO2 03/18/18 11:50 98.0 69 19 127/72 (90) 93 03/18/18 10:20 62 03/18/18 08:33 97.8 73 18 117/75 (89) 96 03/18/18 04:21 97.9 56 16 112/76 (88) 93 03/18/18 02:20 62 03/17/18 22:48 97.9 61 16 118/74 (89) 95 03/17/18 20:16 97.9 78 16 107/74 (85) 95 03/17/18 19:21 98 03/17/18 17:29 97.9 68 18 109/79 (89) 96 03/17/18 17:11 95 21 03/17/18 16:31 03/17/18 14:56 78 16 116/72 (87) 95 Room Air I/O 03/17/18 03/17/18 03/17/18 03/18/18 03/18/18 03/18/18 07:00 15:00 23:00 07:00 15:00 23:00 Intake Total 1000 ml Output Total 750 ml Balance 1000 ml -750 ml Intake IV Total 1000 ml Output Urine Total 750 ml Result Diagram: 03/18/18 0712 03/18/18 0712 Imaging Last Impressions Abdomen/Pelvis CT 03/17/18 1254 Signed Impressions: Service Date/Time: Saturday, March 17, 2018 13:59 - CONCLUSION: 1. No acute finding is identified on this noncontrast examination to explain the clinical symptoms. 2. Mild atherosclerotic disease. Jaden Adair MD Chest X-Ray 03/17/18 1222 Signed Impressions: Service Date/Time: Saturday, March 17, 2018 12:37 - CONCLUSION: Stable appearance with no acute disease. Zackery Infante MD Head CT 03/17/18 0000 Signed Impressions: Service Date/Time: Saturday, March 17, 2018 13:57 - CONCLUSION: 1. No acute intracranial abnormality identified. Rg Foreman MD Objective Remarks GENERAL: Well-nourished, well-developed middle aged male patient in [facility]. SKIN: Warm and dry. No rash. HEENT: Normocephalic. Atraumatic.Pupils equal and round. Mucous membranes pink and moist. CARDIOVASCULAR: Regular rate and rhythm. No murmur appreciated. RESPIRATORY: No accessory muscle use. Clear to auscultation. Breath sounds equal bilaterally. GASTROINTESTINAL: Abdomen soft, nondistended, diffuse TTP, worse at bilateral upper quadrants. Normoactive bowel sounds x4. MUSCULOSKELETAL: No obvious deformities. Extremities without clubbing, cyanosis , or edema. NEUROLOGICAL: Awake and alert. No obvious cranial nerve deficits. Motor grossly within normal limits. Normal speech. PSYCHIATRIC: Appropriate mood and affect; insight and judgment normal. Medications and IVs Current Medications Medications (Trade) Dose Ordered Sig/Deanna Route Start Time Stop Time Status Last Admin (NS Flush) 2 ml UNSCH PRN IVF 03/17/18 12:30 (NS Flush) 2 ml UNSCH PRN IVF 03/17/18 12:30 (Zofran Inj) 4 mg Q6H PRN IVP 03/17/18 16:15 (Narcan Inj) 0.4 mg UNSCH PRN IV PUSH 03/17/18 16:15 (Margarita-Colace) 1 tab BID PO 03/17/18 21:00 03/18/18 10:30 (Milk Of Magnesia Liq) 30 ml Q12H PRN PO 03/17/18 16:15 (Senokot) 17.2 mg Q12H PRN PO 03/17/18 16:15 (Dulcolax Supp) 10 mg DAILY PRN RECTAL 03/17/18 16:15 (Lactulose Liq) 30 ml DAILY PRN PO 03/17/18 16:15 Potassium Chloride/Sodium Chloride 1,000 ml @ 84 mls/hr [id number] IV 03/17/18 16:15 03/18/18 05:11 (Epivir) 300 mg DAILY PO 03/18/18 09:00 03/18/18 10:30 (Ziagen) 600 mg DAILY PO 03/18/18 09:00 03/18/18 10:30 A/P Problem List: (1) Acute kidney injury ICD Code: N17.9 - Acute kidney failure, unspecified (2) Abdominal pain ICD Code: R10.9 - Unspecified abdominal pain (3) Hematochezia ICD Code: K92.1 - Hematochezia Status: Acute (4) Chronic ITP (idiopathic thrombocytopenia) ICD Code: D69.3 - Immune thrombocytopenic purpura Status: Acute (5) Syncope ICD Code: R55 - Syncope and collapse Status: Acute (6) Hepatitis C ICD Code: B19.20 - Hepatitis C Status: Chronic (7) HIV (human immunodeficiency virus infection) ICD Code: Z21 - HIV (human immunodeficiency virus infection) Status: Chronic (8) Tobacco use ICD Code: Z72.0 - Tobacco use Status: Chronic Assessment and Plan 48 year-old male with history of HIV, Hepatitis C, Chronic thrombocytopenia, s/ p splenectomy, COPD, arthritis, anxiety, presents for syncope and hematochezia Syncopal episode: Suspect secondary to dehydration however rule out other etiologies such as ACS, cardiomyopathy, arrhythmia -Head CT images reviewed, now acute findings -ACS ruled out with negative serial cardiac enzymes x3 and EKG without acute ST changes -Monitor on telemetry -Check echocardiogram. -Give IVF hydration Abdominal Pain/Hematochezia/Weight Loss: Patient reports bright red blood with bowel movements. Rectal exam in the ED revealed external hemorrhoids however hemoccult negative. -Abd/pelvis CT reviewed, no acute findings -Monitor CBC, currently stable with Hgb 18.3 --> 17.4 -check stool hemoccult -Consult GI, appreciate recommendations Acute kidney injury: Patient appears to be dehydrated. He has had poor oral intake over the past week with decreased appetite, nausea, abdominal pain, and weight loss. -Continue IV fluids. -Avoid nephrotoxins -Creatinine improved 1.36 --> 1.00 -Continue to monitor Thrombocytopenia: Patient reports chronic ITP. -Monitor labs. -Monitor for worsening bleeding episodes. -Consulted hematology HIV: Chronic -continue home medications. Hepatitis C with Cirrhosis: Patient reports no treatment. -hepatitis profile ordered -GI consultation requested. Polysubstance abuse: He admits to marijuana and cocaine use. -Patient was counseled. Tobacco abuse: chronic -Patient was counseled regarding smoking cessation. DVT prophylaxis: SCDs, KARTHIKEYAN knox. Avoid chemical prophylaxis secondary to hematochezia, thrombocytopenia. Problem Qualifiers (1) Syncope: Qualified Codes: R55 - Syncope and collapse Tamara Hicks PA-C March 18, 2018 12:29 pm
[2018-03-18] MEDS ORDERED: ACETAMINOPHEN/HYDROcodone 325 MG/5 MG TAB PO PRN (13:45)
[2018-03-18] MEDS ORDERED: ALBUTEROL SULFATE 90 MCG/ACT HFA 8 GM INHALER INH PRN (13:45)
[2018-03-18] MEDS: ACETAMINOPHEN/HYDROcodone 325 MG/10 MG TAB PO PRN ×3 (14:15→22:54)
[2018-03-18] MEDS: REMOVE OLD PATCH T-DERMAL SCH (14:30)
[2018-03-18] MEDS: NICOTINE 21 MG/24 HR PATCH T-DERMAL SCH (14:39)
--- NOTE | 2018-03-18 18:19 | MB ---
cc: Greg Colón MD, Richard MD DATE: 03/18/2018 REASON FOR CONSULTATION: 1. Idiopathic thrombocytopenic purpura. 2. Previous history of HIV positivity. 3. Hepatitis C. 4. History of noncompliance. 5. Syncope. 6. Recent gastrointestinal bleeding. 7. Drug use. PATIENT PROFILE: The patient is a 48-year-old white male. He is currently not . He has a fiance and will in the next 1 or 2 months. He has a daughter. He was born in [place], [place]. He is currently living with his fiancee. He is on disability. He spent 21 months in half-way for assault and was released on 01/19/2018. He smokes a pack of cigarettes per day. In the past he drank alcohol, but currently has only a rare drink. He had used drugs extensively in the past. He rarely uses marijuana although several days ago used cocaine on one occasion to help sustain an erection. HISTORY OF PRESENT ILLNESS: The patient is well known to the Hematology/Oncology group. He was last seen by Dr. Lacy in 07/2016. He has had ITP and has had multiple treatments. There was discussion about treating him with Nplate. The patient indicates that he may have received Nplate, but it did not help much. It is unclear to me what happened as there were no followup appointments after this and he ended up returning to the half-way. His immediate problem dates back to 5 or 6 days. He has had between 5 and 6 episodes of syncope over the past five days with slight lightheadedness before syncope. He has not had any injuries related to the fall. He denies chest pain or palpitations. He has had a slight amount of rectal bleeding on 2 occasions The blood has been bright red. For this reason, he came to the emergency room on 03/17/2018. Hemoglobin 18.3, hematocrit 53. White count 11,800, and platelets of 32,000. On 03/18 hemoglobin 17.4, white count 8700, and platelets are 30,000. In looking back over previous records, the last platelet count I have is dated 07/2016 and is 16,000. He tells me that his HIV is under control and his viral load is 0. He tells me that his hepatitis C is not under control. He was told in the half-way that he his viral load was 1.5 million and he was told that he would in the future need treatment. Since admission, he has undergone an abdominal and pelvic CT scan. There are multiple clips present in the left upper quadrant. He has had a previous splenectomy. There is residual splenic tissue in the left upper quadrant, which is stable from a prior exam. The liver is homogeneous without lesions. There was no mention of any cirrhosis. Other studies include a CMP on 03/18/2018. Electrolytes, BUN and creatinine are normal. AST 45, ALT 33, alkaline phosphatase 121, albumin is 2.6. His current ethyl alcohol level on 03/17 is 29. PT is 10.9, PTT is 31. PAST SURGICAL HISTORY: 1. Splenectomy. 2. Left ankle surgery. PAST MEDICAL HISTORY: 1. HIV which the patient states is under control with a 0 viral load and he indicates that his CD4 count is approximately 780, 2. ITP. 3. Hepatitis C, which he indicates is not under control. 3. Anxiety. 4. Arthritis. 5. COPD. 6. Tobacco use. 7. Noncompliance. 8. Drug use. ALLERGIES: NO KNOWN ALLERGIES TO MEDICATIONS. FAMILY HISTORY: Noncontributory. MEDICATIONS PRIOR TO ADMISSION: 1. Combination of Oluqaztc-Fvhnodfelijd-Vktnjatjep 2. Albuterol 3. Flexeril. 4. Valium 5. Advair inhaler. 6. Quail. REVIEW OF SYSTEMS: CONSTITUTIONAL: No visual or hearing problems. No chest pain, palpitations. The patient has had 5 or 6 episodes of syncope with lightheadedness. RESPIRATORY: No shortness of breath. GASTROINTESTINAL: Notable for 2 episodes of hematochezia. GENITOURINARY: No dysuria or frequency. MUSCULOSKELETAL: Pain in the left ankle. NEUROLOGIC: No focal weakness. PSYCHIATRIC: Denies depression. SKIN: Some excoriations of skin. PHYSICAL EXAMINATION: GENERAL: Reveals a gentleman in no acute distress. VITAL SIGNS: Blood pressure 120/80, respiratory rate 18, pulse 66, temperature 99.1, O2 saturation 93%. HEENT: Head is normocephalic. Sclerae and conjunctivae are normal. Oropharynx - No mucosal lesions. NECK: There is no cervical, supraclavicular, axillary or inguinal adenopathy. HEART: Regular rhythm. LUNGS: Clear without rales, wheezes or rhonchi. ABDOMEN: Soft. Liver I believe is 2 cm below the right costal margin. Mild tenderness. No palpable splenomegaly. The patient has had a previous splenectomy. EXTREMITIES: No edema. MUSCULOSKELETAL: No bone pain. NEUROLOGIC: No weakness. Cognition and affect are unremarkable. SKIN: Few areas of excoriation over the lower extremities. ASSESSMENT AND PLAN: 1. The patient has a history of idiopathic thrombocytopenia purpura. He has chronic thrombocytopenia. His platelet count has been 32,000 and 30,000 since admission. At this level, he does not require treatment. He has had a slight amount of hematochezia. He cannot have had much bleeding as his current hemoglobin is 17.4, hematocrit is 51; both of these values are elevated. 2. He is human immunodeficiency virus positive. He indicates that he does not have any viral load and he is currently on treatement. 3. He tells me that he has hepatitis C, which is active and testing has been ordered. Active hepatitis C can contribute to his thrombocytopenia and this will need to be dealt with by either gastroenterology or infectious disease. 4. Of note, on the CAT scan of the abdomen he has a residual splenic tissue and if he developed refractory thrombocytopenia, removal of this tissue would be an option. 5. He continues to smoke and he needs to stop. 6. He continues to use drugs intermittently. He needs to stop. 7. Given the hematochezia, it would be appropriate to at least consider doing a sigmoidoscopy or colonoscopy. He can followup with Dr. Lacy regarding his idiopathic thrombocytopenic purpura. Presently, with a platelet count of 30,000 I do feel that he needs treatment. MD SUMMER Beckwith/ , 05:28 PM , 06:18 PM DANYELLE
[2018-03-18] MEDS: BUDESONIDE-FORMOTEROL 160/4.5 MCG INHALER INH SCH (20:33)
[2018-03-18] MEDS ORDERED: NON-FORMULARY DRUG (Fluticasone-Salmeterol Inh (Advair Diskus Inh) 2 PUFF) INH SCH (21:00)
[2018-03-19] VITALS (7 sets, daily range): BP systolic 110–128; BP diastolic 68–90; PULSE 57–78; RESP 18–20; TEMP 97.1–98.2; O2SAT 95–98
[2018-03-19] MEDS: ACETAMINOPHEN/HYDROcodone 325 MG/10 MG TAB PO PRN ×4 (03:01→21:48)
[2018-03-19] MEDS: NS + KCL 20 MEQ INJ 1,000 ML IV SCH ×2 (04:07→16:19)
[2018-03-19] MEDS: ABACAVIR SULFATE 300 MG TAB PO SCH (08:15)
[2018-03-19] MEDS: BUDESONIDE-FORMOTEROL 160/4.5 MCG INHALER INH SCH ×2 (08:15→21:48)
[2018-03-19] MEDS: DOLUTEGRAVIR SODIUM 50 MG TAB PO SCH (08:15)
[2018-03-19] MEDS: DOCUSATE SODIUM 50 MG/SENNA 8.6 MG TAB PO SCH ×2 (08:15→21:48)
[2018-03-19] MEDS: NICOTINE 21 MG/24 HR PATCH T-DERMAL SCH (08:16)
[2018-03-19] MEDS: REMOVE OLD PATCH T-DERMAL SCH (08:16)
--- NOTE | 2018-03-19 09:14 | HHI.PR ---
Subjective Remarks Follow-up for syncope, hematochezia, thrombocytopenia. Patient reports continued diffuse upper abdominal pain today, slightly improved compared to yesterday. He reports occasional nausea but no vomiting. He tolerated dinner last night. Denies any fevers or chills. He has not had a bowel movement since his arrival. Denies any lightheadedness or dizziness. Denies any chest pain or shortness of breath. He has no other medical complaints at this time. Objective Vitals Vital Signs Date Time Temp Pulse Resp B/P (MAP) Pulse Ox O2 Delivery O2 Flow Rate FiO2 03/19/18 07:59 57 03/19/18 07:37 98.2 78 20 124/70 (88) 98 03/19/18 04:01 12 03/19/18 04:01 97.1 62 18 110/71 (84) 95 03/19/18 04:00 59 03/18/18 23:29 97.6 76 18 132/93 (106) 94 03/18/18 20:31 98.4 67 18 122/74 (90) 94 03/18/18 19:55 21 03/18/18 16:08 99.1 66 18 116/72 (87) 93 124/85 (98) 126/79 (95) 03/18/18 15:55 67 03/18/18 11:50 98.0 69 19 127/72 (90) 93 03/18/18 10:20 62 I/O 03/18/18 03/18/18 03/18/18 03/19/18 03/19/18 03/19/18 06:59 14:59 22:59 06:59 14:59 22:59 Output Total 750 ml 1000 ml Balance -750 ml -1000 ml Output Urine Total 750 ml 1000 ml Result Diagram: 03/18/18 0712 03/18/18 0712 Imaging Last Impressions Abdomen/Pelvis CT 03/17/18 1254 Signed Impressions: Service Date/Time: Saturday, March 17, 2018 13:59 - CONCLUSION: 1. No acute finding is identified on this noncontrast examination to explain the clinical symptoms. 2. Mild atherosclerotic disease. Jaden Adair MD Chest X-Ray 03/17/18 1222 Signed Impressions: Service Date/Time: Saturday, March 17, 2018 12:37 - CONCLUSION: Stable appearance with no acute disease. Zackery Infante MD Head CT 03/17/18 0000 Signed Impressions: Service Date/Time: Saturday, March 17, 2018 13:57 - CONCLUSION: 1. No acute intracranial abnormality identified. Rg Foreman MD Objective Remarks GENERAL: Well-nourished, well-developed middle aged male patient in [facility]. SKIN: Warm and dry. No rash. HEENT: Normocephalic. Atraumatic.Pupils equal and round. Mucous membranes pink and moist. CARDIOVASCULAR: Regular rate and rhythm. No murmur appreciated. RESPIRATORY: No accessory muscle use. Clear to auscultation. Breath sounds equal bilaterally. GASTROINTESTINAL: Abdomen soft, nondistended, mild upper abdominal tenderness. Normoactive bowel sounds x4. MUSCULOSKELETAL: No obvious deformities. Extremities without clubbing, cyanosis , or edema. NEUROLOGICAL: Awake and alert. No obvious cranial nerve deficits. Motor grossly within normal limits. Normal speech. PSYCHIATRIC: Appropriate mood and affect; insight and judgment normal. Medications and IVs Current Medications Medications (Trade) Dose Ordered Sig/Deanna Route Start Time Stop Time Status Last Admin (NS Flush) 2 ml UNSCH PRN IVF 03/17/18 12:30 (NS Flush) 2 ml UNSCH PRN IVF 03/17/18 12:30 (Zofran Inj) 4 mg Q6H PRN IVP 03/17/18 16:15 (Narcan Inj) 0.4 mg UNSCH PRN IV PUSH 03/17/18 16:15 (Margarita-Colace) 1 tab BID PO 03/17/18 21:00 03/19/18 08:15 (Milk Of Magnesia Liq) 30 ml Q12H PRN PO 03/17/18 16:15 (Senokot) 17.2 mg Q12H PRN PO 03/17/18 16:15 (Dulcolax Supp) 10 mg DAILY PRN RECTAL 03/17/18 16:15 (Lactulose Liq) 30 ml DAILY PRN PO 03/17/18 16:15 Potassium Chloride/Sodium Chloride 1,000 ml @ 84 mls/hr [id number] IV 03/17/18 16:15 03/19/18 04:07 (Epivir) 300 mg DAILY PO 03/18/18 09:00 03/19/18 08:15 (Ziagen) 600 mg DAILY PO 03/18/18 09:00 03/19/18 08:15 ([place] 5-325 Mg) 1 tab Q4H PRN PO 03/18/18 13:45 03/19/18 08:16 ([place] 10-325 Mg) 1 tab Q4H PRN PO 03/18/18 13:45 03/19/18 03:01 (Proair Hfa Inh) 1 puff Q4H PRN INH 03/18/18 13:45 (Habitrol 21 Mg Patch.24 Hr) 1 patch DAILY T-DERMAL 03/18/18 14:30 03/19/18 08:16 Miscellaneous Information 1 DAILY T-DERMAL 03/18/18 14:30 03/19/18 08:16 (Symbicort 160-4.5 Mcg Inh) 2 puff BID INH 03/18/18 21:00 03/19/18 08:15 (Colyte Liq) 4,000 ml ONCE ONCE PO 03/19/18 16:00 03/19/18 16:01 Lactated Ringer's 1,000 ml @ 30 mls/hr Q24H PRN IV 03/19/18 11:30 03/22/18 11:29 Sodium Chloride 500 ml @ 30 mls/hr [id number] PRN IV 03/19/18 11:30 03/22/18 11:29 (Lopressor) 25 mg HATCHERY ATTENDANT PRN PO 03/19/18 11:30 03/22/18 11:29 (Betadine 5% Antisepsis Kit) 1 applic HATCHERY ATTENDANT PRN EACH NARE 03/19/18 11:30 03/22/18 11:29 (Chlorhexidine 2% Cloth) 3 pack HATCHERY ATTENDANT PRN TOPICAL 03/19/18 11:30 03/22/18 11:29 A/P Problem List: (1) Acute kidney injury ICD Code: N17.9 - Acute kidney failure, unspecified (2) Abdominal pain ICD Code: R10.9 - Unspecified abdominal pain (3) Hematochezia ICD Code: K92.1 - Hematochezia Status: Acute (4) Chronic ITP (idiopathic thrombocytopenia) ICD Code: D69.3 - Immune thrombocytopenic purpura Status: Acute (5) Syncope ICD Code: R55 - Syncope and collapse Status: Acute (6) Hepatitis C ICD Code: B19.20 - Hepatitis C Status: Chronic (7) HIV (human immunodeficiency virus infection) ICD Code: Z21 - HIV (human immunodeficiency virus infection) Status: Chronic (8) Tobacco use ICD Code: Z72.0 - Tobacco use Status: Chronic Assessment and Plan 48 year-old male with history of HIV, Hepatitis C, Chronic thrombocytopenia, s/ p splenectomy, COPD, arthritis, anxiety, presents for syncope and hematochezia Syncopal episode: Suspect secondary to dehydration however rule out other etiologies such as ACS, cardiomyopathy, arrhythmia -Head CT images reviewed, now acute findings -ACS ruled out with negative serial cardiac enzymes x3 and EKG without acute ST changes -Monitor on telemetry -Check echocardiogram. -Give IVF hydration Abdominal Pain/Hematochezia/Weight Loss: Patient reports bright red blood with bowel movements. Rectal exam in the ED revealed external hemorrhoids however hemoccult negative. -Abd/pelvis CT reviewed, no acute findings -Monitor CBC, currently stable with Hgb 18.3 --> 17.4 -check stool hemoccult -Consult GI, appreciate recommendations, plan for EGD/colonoscopy tomorrow Acute kidney injury: Patient appears to be dehydrated. He has had poor oral intake over the past week with decreased appetite, nausea, abdominal pain, and weight loss. -Continue IV fluids. -Avoid nephrotoxins -Creatinine improved 1.36 --> 1.00 -Continue to monitor Thrombocytopenia: Patient reports chronic ITP. -Monitor labs. -Monitor for worsening bleeding episodes. -Consulted hematology, appreciate recommendations, does not need treatment at this time HIV: Chronic -continue home medications. Hepatitis C with Cirrhosis: treatment naive -hepatitis profile ordered -GI consulted, appreciate recommendations Polysubstance abuse: He admits to marijuana and cocaine use. -Patient was counseled. Tobacco abuse: chronic -Patient was counseled regarding smoking cessation. DVT prophylaxis: SCDs, KARTHIKEYAN hose. Avoid chemical prophylaxis secondary to hematochezia, thrombocytopenia. Discharge Planning Plan for EGD/colonoscopy tomorrow. Further disposition to follow. Problem Qualifiers (1) Syncope: Qualified Codes: R55 - Syncope and collapse Tamara Hicks PA-C March 19, 2018 9:14 am
--- NOTE | 2018-03-19 10:19 | HHI.GIFU ---
Subjective Remarks Pt reports continued chronic upper abdominal pain today Reports of nausea, denies emesis Ate his entire breakfast No BM since I saw him yesterday (Inessa Lunsford) Objective Vitals I&O Vital Signs Date Time Temp Pulse Resp B/P (MAP) Pulse Ox O2 Delivery O2 Flow Rate FiO2 03/19/18 07:59 57 03/19/18 07:37 98.2 78 20 124/70 (88) 98 03/19/18 04:01 12 03/19/18 04:01 97.1 62 18 110/71 (84) 95 03/19/18 04:00 59 03/18/18 23:29 97.6 76 18 132/93 (106) 94 03/18/18 20:31 98.4 67 18 122/74 (90) 94 03/18/18 19:55 21 03/18/18 16:08 99.1 66 18 116/72 (87) 93 124/85 (98) 126/79 (95) 03/18/18 15:55 67 03/18/18 11:50 98.0 69 19 127/72 (90) 93 03/18/18 10:20 62 I/O 03/18/18 03/18/18 03/18/18 03/19/18 03/19/18 03/19/18 07:00 15:00 23:00 07:00 15:00 23:00 Output Total 750 ml 1000 ml Balance -750 ml -1000 ml Output Urine Total 750 ml 1000 ml Laboratory Laboratory Tests Test 03/18/18 12:42 Tumor Marker Alpha Fetoprotein 3.5 Hepatitis A IgM Antibody NONREACTIVE Hepatitis B Surface Antigen NONREACTIVE Hepatitis B Core IgM Antibody NONREACTIVE Hepatitis C IgG Antibody REACTIVE Imaging Last Impressions Abdomen/Pelvis CT 03/17/18 1254 Signed Impressions: Service Date/Time: Saturday, March 17, 2018 13:59 - CONCLUSION: 1. No acute finding is identified on this noncontrast examination to explain the clinical symptoms. 2. Mild atherosclerotic disease. Jaden Adair MD Chest X-Ray 03/17/18 1222 Signed Impressions: Service Date/Time: Saturday, March 17, 2018 12:37 - CONCLUSION: Stable appearance with no acute disease. Zackery Infante MD Head CT 03/17/18 0000 Signed Impressions: Service Date/Time: Saturday, March 17, 2018 13:57 - CONCLUSION: 1. No acute intracranial abnormality identified. Rg Foreman MD Physical Exam HEENT: Normocephalic; atraumatic CHEST: Even/unlabored CARDIAC: RRR ABDOMEN: Soft, mildly distended, upper abdominal tenderness, bowel sounds active EXTREMITIES: No clubbing, cyanosis, or edema. SKIN: Normal; no rash; no jaundice. 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 (Inessa Lunsford) Assessment and Plan Plan Assessment: - Hematochezia- reports of BRBPR mixed in the stool for the past couple days. History of GIB secondary to low platelets. States last colonoscopy was done at this facility 3 years ago, I can not find these records in his chart. H/H currently 17.4/51.1 Platelets- 30 INR-1.1 - Chronic ITP- Previously followed by hematology and has been on Nplate and IVIG in the past, per previous records pt has been noncompliant with treatment. History of splenectomy - Cirrhosis with hepatitis C, treatment naive History of IVDU, states no use in multiple years. Has 2 tattoos, both done in longterm. Denies high risk sexual behavior. Still drinks ETOH, reports once a week, admits to last ETOH was 2 nights ago AFP- 3.5 - Weight loss- reports 10 lbs over the past two weeks, unintentional but reports a poor appetite CT abdomen and pelvis W/O IV contrast (03/17) --> No acute findings are identified on this noncontrast examination to explain the clinical symptoms. Mild arteriosclerotic disease. Liver: Homogeneous density without lesion. There is no dilation of the biliary tree. No calcified gallstones. - HIV- reports recent viral load and was undetectable - Syncopal episodes- reports multiple syncopal episodes over the past couple days. Head CT negative Ammonia-37 (03/19) Pt denies any BM or emesis since my exam yesterday. Repeat labs from today are still pending. Seen by hematology who has no plans on treating thrombocytopenia at this time. Complaining of chronic abdominal pain and nausea, did tolerate eating his whole breakfast. Hep C genotype and RNA pending. Plan: EGD/colonoscopy tomorrow Need for platelet transfusion pending todays labs Obtain consent Clear liquids today Golytely prep NPO after MN Hep C genotype and quant Monitor H/H Transfuse as needed Further recommendations based on clinical course Pt has been seen and examined by myself and Dr. Peguero and this note is written on her behalf (Inessa Lunsford) Physician Comments seen, examined agree with above we will ask hematology about preprocedure platelets transfusion (America Peguero MD) Inessa Lunsford March 19, 2018 10:19 America Peguero MD March 19, 2018 11:33
[2018-03-19] MEDS ORDERED: CHLORHEXIDINE GLUCONATE 2 % 1 PACK (2 CLOTHS) TOPICAL PRN (11:30)
[2018-03-19] MEDS ORDERED: POVIDONE IODINE 5% (ANTISEPSIS KIT) 4 APPLICATIONS EACH NARE PRN (11:30)
[2018-03-19] MEDS ORDERED: METOPROLOL TARTRATE 25 MG TAB PO PRN (11:30)
[2018-03-19] MEDS ORDERED: SODIUM CHLORID 0.9% 500 ML IV PRN (11:30)
[2018-03-19] MEDS ORDERED: LACTATED RINGER'S 1000 ML IV PRN (11:30)
[2018-03-19 12:49] LABS: AUTOMATED NEUTROPHIL # 5.8 TH/MM3 (1.8-7.7); BASOPHIL # 0.1 TH/MM3 (0-0.2); BASOPHIL % 1.3 % (0.0-2.0); EOSINOPHIL # 0.4 TH/MM3 (0-0.4); EOSINOPHIL % 4.5 % (0.0-4.0); HEMOGLOBIN 17.6 GM/DL (13.0-17.0); LYMPH % 23.8 % (9.0-44.0); LYMPHOCYTE # 2.4 TH/MM3 (1.0-4.8); MEAN CELL VOLUME 90.1 FL (80.0-100.0); MEAN CORPUSCULAR HEMOGLOBIN 30.5 PG (27.0-34.0); MEAN CORPUSCULAR HGB CONC 33.9 % (32.0-36.0); MEAN PLATELET VOLUME 10.8 FL (7.0-11.0); MONO % 12.4 % (0.0-8.0); MONOCYTE # 1.2 TH/MM3 (0-0.9); PLATELET COUNT 38 TH/MM3 (150-450); RED BLOOD COUNT 5.77 MIL/MM3 (4.50-5.90); RED CELL DISTRIBUTION WIDTH 13.6 % (11.6-17.2)
[2018-03-19 13:13] LABS: ALBUMIN 2.9 GM/DL (3.4-5.0); ALT (GPT) 32 U/L (12-78); AST (GOT) 41 U/L (15-37); BICARBONATE 26.3 MEQ/L (21.0-32.0); BLOOD UREA NITROGEN 13 MG/DL (7-18); CALCIUM 8.4 MG/DL (8.5-10.1); CHLORIDE 110 MEQ/L (98-107); CREATININE 1.12 MG/DL (0.60-1.30); GLOMERULAR FILTRATION RATE 69 ML/MIN (>89); GLUCOSE,RANDOM 98 MG/DL (74-106); SODIUM (NA) 141 MEQ/L (136-145)
[2018-03-19 13:15] LABS: ALKALINE PHOSPHATASE 128 U/L (45-117); TOTAL BILIRUBIN ADULT 0.6 MG/DL (0.2-1.0); TOTAL PROTEIN 6.5 GM/DL (6.4-8.2)
[2018-03-19] MEDS ORDERED: PEG (High)/E-LYTE SOLN 4000 ML BTL PO ONE (16:00)
[2018-03-20 01:27] VITALS: BP 108/72; PULSE 65; RESP 16; TEMP 98.7; O2SAT 96
[2018-03-20] MEDS: ACETAMINOPHEN/HYDROcodone 325 MG/10 MG TAB PO PRN ×3 (01:51→16:48)
[2018-03-20] MEDS: NS + KCL 20 MEQ INJ 1,000 ML IV SCH (03:57)
[2018-03-20 06:25] VITALS: BP 120/77; PULSE 63; RESP 16; TEMP 97.8; O2SAT 92
[2018-03-20 07:00] VITALS: PULSE 69
[2018-03-20 08:26] LABS: AUTOMATED NEUTROPHIL # 6.1 TH/MM3 (1.8-7.7); BASOPHIL # 0.1 TH/MM3 (0-0.2); BASOPHIL % 0.9 % (0.0-2.0); EOSINOPHIL # 0.4 TH/MM3 (0-0.4); EOSINOPHIL % 3.8 % (0.0-4.0); HEMATOCRIT 50.7 % (39.0-51.0); HEMOGLOBIN 17.5 GM/DL (13.0-17.0); LYMPH % 24.9 % (9.0-44.0); LYMPHOCYTE # 2.5 TH/MM3 (1.0-4.8); MEAN CELL VOLUME 89.2 FL (80.0-100.0); MEAN CORPUSCULAR HEMOGLOBIN 30.9 PG (27.0-34.0); MEAN CORPUSCULAR HGB CONC 34.6 % (32.0-36.0); MEAN PLATELET VOLUME 10.4 FL (7.0-11.0); MONO % 10.5 % (0.0-8.0); MONOCYTE # 1.1 TH/MM3 (0-0.9); NEUT % 59.9 % (16.0-70.0); PLATELET COUNT 33 TH/MM3 (150-450); RED BLOOD COUNT 5.68 MIL/MM3 (4.50-5.90); RED CELL DISTRIBUTION WIDTH 13.5 % (11.6-17.2); WHITE BLOOD COUNT 10.2 TH/MM3 (4.0-11.0)
--- NOTE | 2018-03-20 08:26 | HHI.PR ---
Subjective Remarks Follow up for syncope, hematochezia, thrombocytopenia. The patient reports some mild diffuse upper abdominal pain, unchanged compared to yesterday. Denies nausea/vomiting. He reports multiple nonbloody BMs overnight after bowel prep. Denies fevers/chills. Denies any lightheadedness/dizziness. He has no other medical complaints at this time. Objective Vitals Vital Signs Date Time Temp Pulse Resp B/P (MAP) Pulse Ox O2 Delivery O2 Flow Rate FiO2 03/20/18 06:25 97.8 63 16 120/77 (91) 92 03/20/18 01:27 98.7 65 16 108/72 (84) 96 03/19/18 16:42 97.9 60 20 115/75 (88) 96 120/84 (96) 122/90 (101) 03/19/18 13:26 59 03/19/18 12:41 98.2 78 20 128/68 (88) 98 Result Diagram: 03/19/18 1230 03/19/18 1230 Imaging Last Impressions Abdomen/Pelvis CT 03/17/18 1254 Signed Impressions: Service Date/Time: Saturday, March 17, 2018 13:59 - CONCLUSION: 1. No acute finding is identified on this noncontrast examination to explain the clinical symptoms. 2. Mild atherosclerotic disease. Jaden Adair MD Chest X-Ray 03/17/18 1222 Signed Impressions: Service Date/Time: Saturday, March 17, 2018 12:37 - CONCLUSION: Stable appearance with no acute disease. Zackery Infante MD Head CT 03/17/18 0000 Signed Impressions: Service Date/Time: Saturday, March 17, 2018 13:57 - CONCLUSION: 1. No acute intracranial abnormality identified. Rg Foreman MD Objective Remarks GENERAL: Well-nourished, well-developed middle aged male patient in [facility]. SKIN: Warm and dry. No rash. HEENT: Normocephalic. Atraumatic.Pupils equal and round. Mucous membranes pink and moist. CARDIOVASCULAR: Regular rate and rhythm. No murmur appreciated. RESPIRATORY: No accessory muscle use. Clear to auscultation. Breath sounds equal bilaterally. GASTROINTESTINAL: Abdomen soft, nondistended, minimal upper abdominal tenderness , improved. Normoactive bowel sounds x4. MUSCULOSKELETAL: No obvious deformities. Extremities without clubbing, cyanosis , or edema. NEUROLOGICAL: Awake and alert. No obvious cranial nerve deficits. Motor grossly within normal limits. Normal speech. PSYCHIATRIC: Appropriate mood and affect; insight and judgment normal. Medications and IVs Current Medications Medications (Trade) Dose Ordered Sig/Deanna Route Start Time Stop Time Status Last Admin (NS Flush) 2 ml UNSCH PRN IVF 03/17/18 12:30 (NS Flush) 2 ml UNSCH PRN IVF 03/17/18 12:30 (Zofran Inj) 4 mg Q6H PRN IVP 03/17/18 16:15 (Narcan Inj) 0.4 mg UNSCH PRN IV PUSH 03/17/18 16:15 (Margarita-Colace) 1 tab BID PO 03/17/18 21:00 03/19/18 21:48 (Milk Of Magnesia Liq) 30 ml Q12H PRN PO 03/17/18 16:15 (Senokot) 17.2 mg Q12H PRN PO 03/17/18 16:15 (Dulcolax Supp) 10 mg DAILY PRN RECTAL 03/17/18 16:15 (Lactulose Liq) 30 ml DAILY PRN PO 03/17/18 16:15 Potassium Chloride/Sodium Chloride 1,000 ml @ 84 mls/hr [id number] IV 03/17/18 16:15 03/19/18 16:19 (Epivir) 300 mg DAILY PO 03/18/18 09:00 03/19/18 08:15 (Ziagen) 600 mg DAILY PO 03/18/18 09:00 03/19/18 08:15 ([place] 5-325 Mg) 1 tab Q4H PRN PO 03/18/18 13:45 03/19/18 08:16 ([place] 10-325 Mg) 1 tab Q4H PRN PO 03/18/18 13:45 03/20/18 08:49 (Proair Hfa Inh) 1 puff Q4H PRN INH 03/18/18 13:45 (Habitrol 21 Mg Patch.24 Hr) 1 patch DAILY T-DERMAL 03/18/18 14:30 03/19/18 08:16 Miscellaneous Information 1 DAILY T-DERMAL 03/18/18 14:30 03/19/18 08:16 (Symbicort 160-4.5 Mcg Inh) 2 puff BID INH 03/18/18 21:00 03/19/18 21:48 Lactated Ringer's 1,000 ml @ 30 mls/hr Q24H PRN IV 03/19/18 11:30 03/22/18 11:29 Sodium Chloride 500 ml @ 30 mls/hr [id number] PRN IV 03/19/18 11:30 03/22/18 11:29 (Lopressor) 25 mg LAUNDRY MARKER SUPERVISOR PRN PO 03/19/18 11:30 03/22/18 11:29 (Betadine 5% Antisepsis Kit) 1 applic LAUNDRY MARKER SUPERVISOR PRN EACH NARE 03/19/18 11:30 03/22/18 11:29 (Chlorhexidine 2% Cloth) 3 pack LAUNDRY MARKER SUPERVISOR PRN TOPICAL 03/19/18 11:30 03/22/18 11:29 A/P Problem List: (1) Acute kidney injury ICD Code: N17.9 - Acute kidney failure, unspecified (2) Abdominal pain ICD Code: R10.9 - Unspecified abdominal pain (3) Hematochezia ICD Code: K92.1 - Hematochezia Status: Acute (4) Chronic ITP (idiopathic thrombocytopenia) ICD Code: D69.3 - Immune thrombocytopenic purpura Status: Acute (5) Syncope ICD Code: R55 - Syncope and collapse Status: Acute (6) Hepatitis C ICD Code: B19.20 - Hepatitis C Status: Chronic (7) HIV (human immunodeficiency virus infection) ICD Code: Z21 - HIV (human immunodeficiency virus infection) Status: Chronic (8) Tobacco use ICD Code: Z72.0 - Tobacco use Status: Chronic Assessment and Plan 48 year-old male with history of HIV, Hepatitis C, Chronic thrombocytopenia, s/ p splenectomy, COPD, arthritis, anxiety, presents for syncope and hematochezia Syncopal episode: Suspect secondary to dehydration however rule out other etiologies such as ACS, cardiomyopathy, arrhythmia -Head CT images reviewed, now acute findings -ACS ruled out with negative serial cardiac enzymes x3 and EKG without acute ST changes -Monitor on telemetry -Check echocardiogram -Give IVF hydration Abdominal Pain/Hematochezia/Weight Loss: Patient reports bright red blood with bowel movements. Rectal exam in the ED revealed external hemorrhoids however hemoccult negative. -Abd/pelvis CT reviewed, no acute findings -Monitor CBC, currently stable with Hgb 18.3 --> 17.5 -check stool hemoccult -Consult GI, appreciate recommendations, plan for EGD/colonoscopy today Acute kidney injury: Patient appears to be dehydrated. He has had poor oral intake over the past week with decreased appetite, nausea, abdominal pain, and weight loss. -Continue IV fluids. -Avoid nephrotoxins -Creatinine improved 1.36 --> 1.00 -Continue to monitor Thrombocytopenia: Patient reports chronic ITP. -Monitor labs. -Monitor for worsening bleeding episodes. -Consulted hematology, appreciate recommendations, does not need treatment at this time HIV: Chronic -continue home medications. Hepatitis C with Cirrhosis: treatment naive -hepatitis profile ordered -GI consulted, appreciate recommendations Polysubstance abuse: He admits to marijuana and cocaine use. -Patient was counseled. Tobacco abuse: chronic -Patient was counseled regarding smoking cessation. DVT prophylaxis: SCDs, KARTHIKEYAN knox. Avoid chemical prophylaxis secondary to hematochezia, thrombocytopenia. Discharge Planning Awaiting EGD. Plan for EGD/colonoscopy today. Further disposition to follow. Problem Qualifiers (1) Syncope: Qualified Codes: R55 - Syncope and collapse Tamara Hicks PA-C March 20, 2018 8:26 am
[2018-03-20 08:36] VITALS: BP_SYST 123; BP_SYST 124; BP_DIAS 83; BP_DIAS 85; PULSE 58; RESP 20; TEMP 97.9; O2SAT 95
[2018-03-20 08:45] LABS: ALBUMIN 3.1 GM/DL (3.4-5.0); AST (GOT) 39 U/L (15-37); BICARBONATE 25.2 MEQ/L (21.0-32.0); BLOOD UREA NITROGEN 9 MG/DL (7-18); CHLORIDE 110 MEQ/L (98-107); CREATININE 1.11 MG/DL (0.60-1.30); GLOMERULAR FILTRATION RATE 70 ML/MIN (>89); GLUCOSE,RANDOM 89 MG/DL (74-106); SODIUM (NA) 141 MEQ/L (136-145)
[2018-03-20 08:50] LABS: ALKALINE PHOSPHATASE 129 U/L (45-117); ALT (GPT) 32 U/L (12-78); TOTAL BILIRUBIN ADULT 0.7 MG/DL (0.2-1.0); TOTAL PROTEIN 6.6 GM/DL (6.4-8.2)
[2018-03-20] MEDS: REMOVE OLD PATCH T-DERMAL SCH (09:00)
[2018-03-20] MEDS: DOCUSATE SODIUM 50 MG/SENNA 8.6 MG TAB PO SCH (09:00)
--- NOTE | 2018-03-20 10:23 | GIPROC ---
[facility] [address] [facility]. [facility], [address] EGD PROCEDURE REPORT EXAM DATE: 03/20/2018 PATIENT NAME: Hiren Mckeon MR #: [id number] BIRTHDATE: 1970 ATTENDING: Charli Magallon MD ORDER #: [id number] ADVERTISING SPECIALIST: Sarath Mccarty and Ashanti Salas STATUS: inpatient INDICATIONS: The patient is a 48 yr old male here for an EGD due to epigastric abdominal pain PROCEDURE PERFORMED: EGD w/ biopsy MEDICATIONS: None and Per Anesthesia. TOPICAL ANESTHETIC: CONSENT: The patient understands the risks and benefits of the procedure and understands that these risks include, but are not limited to: sedation, allergic reaction, infection, perforation and/or bleeding. Alternative means of evaluation and treatment include, among others: physical exam, x-rays, and/or surgical intervention. The patient elects to proceed with this endoscopic procedure. medical equipment was checked for proper function. Hand hygiene and appropriate measures for infection prevention was taken. After the risks, benefits and alternatives of the procedure were thoroughly explained, Informed consent was verified, confirmed and timeout was successfully executed by the treatment team. The patient was anesthetized with topical anesthesia and the EC-[id number] (Pedi C) endoscope was introduced through the mouth and advanced to the second portion of the duodenum. Retroflexed views revealed no abnormalities The gastroscope was then slowly withdrawn and removed. ESOPHAGUS: There was LA Class A esophagitis noted. A biopsy was performed using cold forceps. Sample sent for histology. STOMACH: There was moderate and erosive gastritis in the gastric antrum. A biopsy was performed using cold forceps. Sample sent for histology. DUODENUM: The duodenal mucosa appeared normal in the bulb and second portion of the duodenum. ADVERSE EVENTS: There were no complications. IMPRESSIONS: 1. There was LA Class A esophagitis noted; biopsy was performed 2. There was gastritis in the gastric antrum; biopsy was performed 3. Normal duodenal mucosa in the bulb and second portion of the duodenum 4. Retroflexed views revealed no abnormalities RECOMMENDATIONS: 1. Await biopsy results. Biopsy results will not be ready for 7-10 days. If you don't hear from us in two weeks, call our office for biopsy results. 2. Anti-reflux regimen 3. Continue PPI 4. Avoid NSAIDS PATIENT CONDITION: stable DISPOSITION: Inpatient REPEAT EXAM: Return 1 year EGD pending biopsy results Charli Magallon MD eSigned: Charli Magallon MD 03/20/2018 10:23 AM cc: PATIENT NAME: Hiren Mckeon MR#: [id number]
--- NOTE | 2018-03-20 10:33 | GIPROC ---
[facility] [address] [facility]. [facility], [address] COLONOSCOPY PROCEDURE REPORT EXAM DATE: 03/20/2018 PATIENT NAME: Hiren Mckeon MR #: [id number] BIRTHDATE: 1970 ENDOSCOPIST: Charli Magallon MD ORDER #: [id number] SCARFING MACHINE OPERATOR: Sarath Mccarty and Ashanti Salas STATUS: inpatient INDICATIONS: The patient is a 48 yr old male here for a colonoscopy due to abdominal pain PROCEDURE PERFORMED: Colonoscopy, diagnostic MEDICATIONS: None and Per Anesthesia. PREP QUALITY: The Gordon Bowel Prep Score was Right colon 2, Mid colon 2, and Left colon 2. Total = 6. PREP TYPE:GoLytely ESTIMATED BLOOD LOSS: None CONSENT: The patient understands the risks and benefits of the procedure and understands that these risks include, but are not limited to: sedation, allergic reaction, infection, perforation and/or bleeding. Alternative means of evaluation and treatment include, among others: physical exam, x-rays, and/or surgical intervention. The patient elects to proceed with this endoscopic procedure. medical equipment was checked for proper function. Hand hygiene and appropriate measures for infection prevention was taken. After the risks, benefits and alternatives of the procedure were thoroughly explained, Informed consent was verified, confirmed and timeout was successfully executed by the treatment team. A digital exam revealed external hemorrhoids The Pentax EC-3490Li endoscope was introduced through the anus and advanced to the cecum, which was identified by both the appendix and ileocecal valve. The instrument was then slowly withdrawn as the colon was fully examined. COLON FINDINGS: The colonic mucosa appeared normal. Retroflexed views revealed internal hemorrhoids and Retroflexed views revealed medium internal hemorrhoids The scope was then completely withdrawn from the patient and the procedure terminated. ADVERSE EVENTS: There were no complications. IMPRESSIONS: 1. The colonic mucosa appeared normal 2. Retroflexed views revealed internal hemorrhoids 3. Retroflexed views revealed medium internal hemorrhoids 4. Revealed external hemorrhoids RECOMMENDATIONS: 1. Benefiber 2 tsp daily 2. Continue surveillance 3. High fiber diet RECALL: Return 5 years Colonoscopy Charli Magallon MD eSigned: Charli Magallon MD 03/20/2018 10:32 AM cc: PATIENT NAME: Hiren Mckeon MR#: [id number]
[2018-03-20 11:20] VITALS: BP 121/79; PULSE 57; RESP 16; TEMP 97.4; O2SAT 93
[2018-03-20] MEDS: BUDESONIDE-FORMOTEROL 160/4.5 MCG INHALER INH SCH (11:20)
[2018-03-20] MEDS: ABACAVIR SULFATE 300 MG TAB PO SCH (11:21)
[2018-03-20] MEDS: DOLUTEGRAVIR SODIUM 50 MG TAB PO SCH (11:22)
[2018-03-20] MEDS: NICOTINE 21 MG/24 HR PATCH T-DERMAL SCH (11:25)
[2018-03-20] MEDS ORDERED: PROPOFOL 200 MG/20 ML AMP IV ONE (12:00)
[2018-03-20] MEDS ORDERED: LIDOCAINE HCL 1% PF 5 ML SYRINGE OTHER ONE (12:00)
--- NOTE | 2018-03-20 14:22 | HHI.DCPOC ---
Discharge Care Plan Diagnosis: (1) Syncope (2) Rectal bleed (3) Abdominal pain (4) External hemorrhoid (5) Internal hemorrhoids (6) Gastritis (7) Esophagitis Goals to Promote Your Health * To prevent worsening of your condition and complications * To maintain your health at the optimal level Directions to Meet Your Goals Take your medications as prescribed Follow your dietary instruction Follow activity as directed Keep your appointments as scheduled Take your immunizations and boosters as scheduled If your symptoms worsen call your PCP, if no PCP go to Urgent Care Center or Emergency Room Smoking is Dangerous to Your Health. Avoid second hand smoke Call the 24-hour hour crisis hotline for domestic abuse at Tamara Hicks PA-C March 20, 2018 14:22
[2018-03-20] MEDS ORDERED: PANT40TA3 PO (15:41)
--- NOTE | 2018-03-20 15:41 | HHI.DS ---
Discharge Summary Admission Date March 17, 2018 at 15:23 Discharge Date: March 20, 2018 Admitting Diagnosis Syncope, hematochezia, ITP (1) Abdominal pain ICD Code: R10.9 - Unspecified abdominal pain Diagnosis: Principal (2) Acute kidney injury ICD Code: N17.9 - Acute kidney failure, unspecified Diagnosis: Secondary (3) Hematochezia ICD Code: K92.1 - Hematochezia Diagnosis: Principal Status: Acute (4) Chronic ITP (idiopathic thrombocytopenia) ICD Code: D69.3 - Immune thrombocytopenic purpura Diagnosis: Secondary Status: Acute (5) Syncope ICD Code: R55 - Syncope and collapse Diagnosis: Secondary Status: Acute (6) Hepatitis C ICD Code: B19.20 - Hepatitis C Diagnosis: Secondary Status: Chronic (7) HIV (human immunodeficiency virus infection) ICD Code: Z21 - HIV (human immunodeficiency virus infection) Diagnosis: Secondary Status: Chronic (8) Tobacco use ICD Code: Z72.0 - Tobacco use Diagnosis: Secondary Status: Chronic Procedures 03/20/18 - EGD/colonoscopy showed LA class a esophagitis, gastritis, internal and external hemorrhoids Brief History - From Admission The patient is a 48 year-old male who presented to the emergency department following a syncopal episode. He states that he has "blacked out" about 5 times in the past 3 days. He denies hitting his head. He states that the episodes occur when he stands up to walk. He feels lightheaded and then passes out. He states that he has not been eating well over the past week or so. He has had no appetite. He has had some nausea, but no vomiting. He denies diarrhea or constipation, but has had some bright red blood in his stool the last couple days. He has a history of hepatitis C and HIV, as well as chronic thrombocytopenia. He reports a weight loss of 10 pounds in the last week. He has diffuse abdominal pain, worse in the upper abdomen. CBC/BMP: 03/20/18 0800 03/20/18 0800 Significant Findings Laboratory Tests Test 03/17/18 17:41 03/18/18 01:41 03/18/18 07:12 03/18/18 12:42 Troponin I LESS THAN 0.02 NG/ML LESS THAN 0.02 NG/ML Hemoglobin 17.4 GM/DL (13.0-17.0) Hematocrit 51.1 % (39.0-51.0) Platelet Count 30 TH/MM3 (150-450) Monocytes (%) (Auto) 16.6 % (0.0-8.0) Eosinophils (%) (Auto) 5.5 % (0.0-4.0) Monocytes # (Auto) 1.4 TH/MM3 (0-0.9) Eosinophils # (Auto) 0.5 TH/MM3 (0-0.4) Total Protein 5.8 GM/DL (6.4-8.2) Albumin 2.6 GM/DL (3.4-5.0) Calcium Level 7.7 MG/DL (8.5-10.1) Alkaline Phosphatase 121 U/L (45-117) Aspartate Amino Transf (AST/SGOT) 45 U/L (15-37) Chloride Level 112 MEQ/L (98-107) Estimat Glomerular Filtration Rate 79 ML/MIN (>89) Hepatitis C IgG Antibody REACTIVE (NONREACTIVE) Test 03/19/18 12:30 03/20/18 08:00 Hemoglobin 17.6 GM/DL (13.0-17.0) 17.5 GM/DL (13.0-17.0) Hematocrit 52.0 % (39.0-51.0) Platelet Count 38 TH/MM3 (150-450) 33 TH/MM3 (150-450) Monocytes (%) (Auto) 12.4 % (0.0-8.0) 10.5 % (0.0-8.0) Eosinophils (%) (Auto) 4.5 % (0.0-4.0) Monocytes # (Auto) 1.2 TH/MM3 (0-0.9) 1.1 TH/MM3 (0-0.9) Albumin 2.9 GM/DL (3.4-5.0) 3.1 GM/DL (3.4-5.0) Calcium Level 8.4 MG/DL (8.5-10.1) Alkaline Phosphatase 128 U/L (45-117) 129 U/L (45-117) Aspartate Amino Transf (AST/SGOT) 41 U/L (15-37) 39 U/L (15-37) Chloride Level 110 MEQ/L (98-107) 110 MEQ/L (98-107) Estimat Glomerular Filtration Rate 69 ML/MIN (>89) 70 ML/MIN (>89) Platelet Estimate LOW (NORMAL) Platelet Morphology Comment ENLARGED (NORMAL) Imaging Last Impressions Abdomen/Pelvis CT 03/17/18 1254 Signed Impressions: Service Date/Time: Saturday, March 17, 2018 13:59 - CONCLUSION: 1. No acute finding is identified on this noncontrast examination to explain the clinical symptoms. 2. Mild atherosclerotic disease. Jaden Adair MD Chest X-Ray 03/17/18 1222 Signed Impressions: Service Date/Time: Saturday, March 17, 2018 12:37 - CONCLUSION: Stable appearance with no acute disease. Zackery Infante MD Head CT 03/17/18 0000 Signed Impressions: Service Date/Time: Saturday, March 17, 2018 13:57 - CONCLUSION: 1. No acute intracranial abnormality identified. Rg Foreman MD PE at Discharge GENERAL: Well-nourished, well-developed middle aged male patient in [facility]. SKIN: Warm and dry. No rash. HEENT: Normocephalic. Atraumatic.Pupils equal and round. Mucous membranes pink and moist. CARDIOVASCULAR: Regular rate and rhythm. No murmur appreciated. RESPIRATORY: No accessory muscle use. Clear to auscultation. Breath sounds equal bilaterally. GASTROINTESTINAL: Abdomen soft, nondistended, minimal upper abdominal tenderness , improved. Normoactive bowel sounds x4. MUSCULOSKELETAL: No obvious deformities. Extremities without clubbing, cyanosis , or edema. NEUROLOGICAL: Awake and alert. No obvious cranial nerve deficits. Motor grossly within normal limits. Normal speech. PSYCHIATRIC: Appropriate mood and affect; insight and judgment normal. Hospital Course 48 year-old male with history of HIV, Hepatitis C, Chronic thrombocytopenia, s/ p splenectomy, COPD, arthritis, anxiety, presents for syncope and hematochezia Syncopal episode: Suspect secondary to dehydration however rule out other etiologies such as ACS, cardiomyopathy, arrhythmia. Head CT images reviewed, no acute findings. ACS ruled out with negative serial cardiac enzymes x3 and EKG without acute ST changes. Monitor on telemetry, no arrhythmias. Echocardiogram wnl with EF 60-65%. Given IVF hydration. No further lightheadedness/dizziness or near syncopal episodes throughout admission. Abdominal Pain/Hematochezia/Weight Loss: Patient reports bright red blood with bowel movements. Rectal exam in the ED revealed external hemorrhoids however hemoccult negative. Abd/pelvis CT reviewed, no acute findings. Monitored CBC, currently stable with Hgb 18.3 --> 17.5. Consult GI, performed EGD/colonoscopy 03/20 which showed esophagitis, gastritis, internal and external hemorrhoids. Started on Protonix 40mg daily. Recommended high fiber diet. Cleared for discharge by GI. Acute kidney injury: Patient appears to be dehydrated. He has had poor oral intake over the past week with decreased appetite, nausea, abdominal pain, and weight loss. Given IV fluids. Avoid nephrotoxins. Creatinine improved 1.36 --> 1.00. Resolved. Thrombocytopenia: Patient reports chronic ITP. Labs with persistent thrombocytopenia Plt 30K. No recurrent bleeding episodes. Consulted hematology, appreciate recommendations, does not need treatment at this time. HIV: Chronic. Continue home medications. Hepatitis C with Cirrhosis: treatment naive. Hepatitis profile +Hepatitis C. GI consulted, outpatient f/up. Polysubstance abuse: He admits to marijuana and cocaine use. Patient was counseled. Tobacco abuse: chronic. Patient was counseled regarding smoking cessation. Pt Condition on Discharge: Stable Discharge Disposition: Discharge Home Discharge Time: <= 30 minutes Discharge Instructions DIET: Follow Instructions for: As Tolerated, No Restrictions, High Fiber Diet Activities you can perform: Regular-No Restrictions Follow up Referrals: Gastroenterology - 1 Week @ [facility]Hematology - 1 Week with Greg Colón MD PCP Follow-up - 1 Week New Medications: Pantoprazole (Pantoprazole) 40 Mg Tab 40 MG PO DAILY for gastritis, #30 TAB 1 Refill Continued Medications: Jkaqocwj-Xbuoemjfofqg-Naqanwtkbl (Triumeq) 600-50-300 Mg Tab 1 TAB PO DAILY for Mgmt Viral Infection, #30 TAB 0 Refills Hazardous agent; use appropriate precautions for handling & disposal. Albuterol 8.5 GM Inh (Proair Hfa 8.5 GM Inh) 90 Mcg/Act Aer 1 PUFF INH Q4H PRN for SHORTNESS OF BREATH, #1 INHALER 0 Refills 108 mcg/actuation Fluticasone-Salmeterol Inh (Advair Diskus Inh) 250-50 Mcg/Blist Aer 2 PUFF INH BID, #1 INHALER 0 Refills Rinse mouth after use. Hydrocodone-Acetaminophen (Hernshaw) 10-325 Mg Tab 1 TAB PO Q4H PRN for PAIN, TAB 0 Refills Discontinued Medications: Cyclobenzaprine (Flexeril) 5 Mg Tab 5 MG PO TID for Muscle Spasm, #90 TAB 0 Refills Diazepam (Valium) 10 Mg Tab 10 MG PO TID PRN for ANXIETY, TAB 0 Refills Tamara Hicks PA-C March 20, 2018 15:41
[2018-03-20] MEDS ORDERED: PANTOPRAZOLE SOD 40 MG DELAYED RELEASE TAB PO SCH (15:45)
[2018-03-20 15:56] VITALS: BP 127/91; PULSE 62; RESP 20; TEMP 98.4; O2SAT 95
--- NOTE | 2018-03-20 19:30 | ECHRPT ---
Indication: syncope CONCLUSIONS The left ventricular systolic function is normal with an estimated ejection fraction in the range of 60-65%. Normal left ventricular size. Wall thickness is normal. No regional wall motion abnormalities are present. There is trace tricuspid valve regurgitation. The estimated pulmonary arterial pressure is 34 mmHg. BP: 123 / 85 HR: 58 Rhythm: Sinus MEASUREMENTS (Male / Female) Normal Values Technical Quality:Good 2D ECHO LV Diastolic Diameter PLAX 4.0 cm 4.2 - 5.9 / 3.9 - 5.3 cm LV Systolic Diameter PLAX 2.6 cm IVS Diastolic Thickness 0.9 cm 0.6 - 1.0 / 0.6 - 0.9 cm LVPW Diastolic Thickness 0.9 cm 0.6 - 1.0 / 0.6 - 0.9 cm LV Relative Wall Thickness 0.4 RV Internal Dim ED PLAX 3.7 cm LVOT Diameter 1.7 cm LA Systolic Diameter LX 3.3 cm 3.0 - 4.0 / 2.7 - 3.8 cm LV Ejection Fraction MOD 4C 65.1 % LV Cardiac Index MOD 4C 1680.3 cm/minm LV Ejection Fraction 4C AL 65.2 % LV Cardiac Index 4C AL 1726.6 cm/minm M-MODE Aortic Root Diameter MM 2.1 cm LA Systolic Diameter MM 3.4 cm LA Ao Ratio MM 1.6 AV Cusp Separation MM 1.9 cm DOPPLER AV Peak Velocity 137.0 cm/s AV Peak Gradient 7.5 mmHg LVOT Peak Velocity 89.3 cm/s LVOT Peak Gradient 3.2 mmHg AV Area Cont Eq pk 1.5 cm MV Area PHT 4.4 cm Mitral E Point Velocity 73.5 cm/s Mitral A Point Velocity 54.3 cm/s Mitral E to A Ratio 1.4 TR Peak Velocity 247.0 cm/s TR Peak Gradient 24.4 mmHg Right Atrial Pressure 10.0 mmHg Pulmonary Artery Systolic Pressu 34.4 mmHg Right Ventricular Systolic Press 34.4 mmHg PV Peak Velocity 109.0 cm/s PV Peak Gradient 4.8 mmHg FINDINGS LEFT VENTRICLE The left ventricular systolic function is normal with an estimated ejection fraction in the range of 60-65%. Normal left ventricular size. Wall thickness is normal. No regional wall motion abnormalities are present. RIGHT VENTRICLE Normal right ventricular size and systolic function. LEFT ATRIUM The left atrial size is normal. RIGHT ATRIUM The right atrial size is normal. ATRIAL SEPTUM Normal atrial septal thickness without atrial level shunting by limited color doppler interrogation. AORTA The aortic root and proximal ascending aorta are normal in size on limited imaging. MITRAL VALVE Structurally normal mitral valve. No mitral valve stenosis or regurgitation. AORTIC VALVE Trileaflet aortic valve. No aortic valve stenosis or regurgitation. TRICUSPID VALVE Structurally normal tricuspid valve. There is trace tricuspid valve regurgitation. The estimated pulmonary arterial pressure is 34.4 mmHg. PULMONARY VALVE No pulmonary valve regurgitation or stenosis. VESSELS The inferior vena cava is normal in size. PERICARDIUM No pericardial effusion. Maycol Hitchcock MD, FACC (Electronically Signed) Final Date:20 Mar 2018 19:29
[2018-03-22 17:53] LABS: HCV RNA PCR IU/ML 5040000 IU/mL (Not Detected)
== END 2018-03-20 22:04 | disposition home or self-care (01) ==
LOC: NEPE 12:13 → NEDA 15:23 → NEPHCDU 16:50
PROVIDERS: ADMIT Hospitalist; ATTEND Hospitalist
DX: R55 Syncope and collapse (principal); N17.9 Acute kidney failure, unspecified; D69.3 Immune thrombocytopenic purpura; K29.70 Gastritis, unspecified, without bleeding; K20.9 Esophagitis, unspecified; K64.4 Residual hemorrhoidal skin tags; K64.8 Other hemorrhoids; B20 Human immunodeficiency virus [HIV] disease; K74.60 Unspecified cirrhosis of liver; B18.2 Chronic viral hepatitis C; R63.4 Abnormal weight loss; J44.9 Chronic obstructive pulmonary disease, unspecified; F41.9 Anxiety disorder, unspecified; F14.90 Cocaine use, unspecified, uncomplicated; F12.90 Cannabis use, unspecified, uncomplicated; F17.210 Nicotine dependence, cigarettes, uncomplicated; M19.90 Unspecified osteoarthritis, unspecified site; Z91.19 Patient's noncompliance with other medical treatment and regimen; Z90.81 Acquired absence of spleen
CPT/HCPCS: 00813; 43239; 45378; 70450; 71045; 74176; 80053; 80074; 80307; 82105; 82140; 82550; 82552; 83690; 84484; 85025; 85610; 85730; 86850; 86900; 86901; 87522; 87902; 88305; 88312; 93005; 93306; 96360; 96361; 96374; 99285; C9113; G0378; J3480; J7030

== ENCOUNTER 2018-04-23 03:44 | Inpatient (IN) | payer MEDICAID ==
[~2018-04-23] VITALS: Ht 177.8 cm; Wt 67.0 kg
[2018-04-23] VITALS (7 sets, daily range): BP systolic 110–132; BP diastolic 58–80; PULSE 66–89; RESP 10–18; TEMP 97–97.7; O2SAT 94–99
[~2018-04-23 03:44] MED LIST changes: +ABAC1TAB3 PO; -ALBU1AER INH; +ALBUAER3 INH; -ATAZ1TAB PO; -DUONI NEB; +HYDR-3366 PO; -LEVA500T PO; -METH500T3 PO; +PANT40TA3 PO; -TRUVTAB2 PO
[2018-04-23] MEDS ORDERED: SODIUM CHLOR 0.9% 1000 ML INJ 1,000 ML IV ONE (03:55)
--- NOTE | 2018-04-23 04:06 | PD ---
HPI Chief Complaint: Intentional overdose Time Seen by Provider: 03:54 Travel History International Travel<30 days: No Contact w/Intl Traveler<30days: No History of Present Illness HPI 48yo M with PMH of HIV CD4 count in the 700s, Hep C, presents to the ED under [place] for intentional overdose as suicidal attempt. Pt's girlfriend was breaking up with him so he took #30 divalproex sodium ER 250mg at 2:30am today. It was his stepson's medication. Pt is lethargic but arousable and answers questions. Follows commands. Said he has chronic abdominal pain from his Hep C. Denies any chest pain, sob, n/v, focal weakness or numbness. Denies taking any other medications. PFSH Past Medical History Arthritis: Yes Asthma: No Autoimmune Disease: Yes (HIV) Blood Disorders: Yes (thrombocytopenia) Anxiety: Yes Depression: No Heart Rhythm Problems: No Cancer: No Cardiovascular Problems: Yes High Cholesterol: No Chemotherapy: No Chest Pain: Yes Congestive Heart Failure: No COPD: Yes Cerebrovascular Accident: No Diabetes: No Diminished Hearing: No Endocrine: No Gastrointestinal Disorders: No GERD: No Glaucoma: No Genitourinary: No Headaches: No Hepatitis: Yes (C) Hiatal Hernia: No Hypertension: No Immune Disorder: Yes (HIV dx 1990, TCell 788) Implanted Vascular Access Dvce: No Kidney Stones: No Musculoskeletal: Yes (arthritis left ankle, 3 herniated discs in lower back) Neurologic: Yes Psychiatric: Yes Reproductive: No Respiratory: Yes Immunizations Current: Yes Migraines: Yes Myocardial Infarction: No Pneumonia: Yes Radiation Therapy: No Renal Failure: No Seizures: No Sickle Cell Disease: No Sleep Apnea: Yes Thyroid Disease: No Ulcer: No PNEUMOCCOCAL Vaccine (Year): 2 Past Surgical History Abdominal Surgery: Yes (SPLENECTOMY) AICD: No Arteriovenous Shunt: No Body Medical Devices: pins and plates left ankle Cardiac Surgery: No Ear Surgery: No Endocrine Surgery: No Eye Surgery: No Genitourinary Surgery: No Gynecologic Surgery: No Insulin Pump: No Joint Replacement: No Neurologic Surgery: No Oral Surgery: No Pacemaker: No Thoracic Surgery: Yes Other Surgery: Yes (spleenectomy ) Social History Alcohol Use: Yes ("occasionally" ) Tobacco Use: Yes (1 PPD ) Substance Use: Yes (cocaine, 6 years ago) Allergies-Medications (Allergen,Severity, Reaction): Coded Allergies: bee venom protein (honey bee) (Verified Allergy, Severe, Anaphylaxis, ) No Known Allergies (Unverified Allergy, Unknown, 03/17/18) Reported Meds & Prescriptions Reported Meds & Active Scripts Active Pantoprazole (Pantoprazole Sodium) 40 Mg Tab 40 Mg PO DAILY Reported Proair Hfa 8.5 GM Inh (Albuterol Sulfate) 90 Mcg/Act Aer 1 Puff INH Q4H PRN 108 mcg/actuation Advair Diskus Inh (Fluticasone-Salmeterol Inh) 250-50 Mcg/Blist Aer 2 Puff INH BID Rinse mouth after use. Victor (Hydrocodone-Acetaminophen) 10-325 Mg Tab 1 Tab PO Q4H PRN Triumeq (Dspdhqwy-Myyfafehpnvf-Yltzapytcm) 600-50-300 Mg Tab 1 Tab PO DAILY Hazardous agent; use appropriate precautions for handling & disposal. Review of Systems Except as stated in HPI: all other systems reviewed are Neg Physical Exam Narrative GENERAL: 48yo M not in distress. SKIN: Focused skin assessment warm/dry. HEAD: Atraumatic. Normocephalic. EYES: Pupils equal and round. No scleral icterus. No injection or drainage. ENT: No nasal bleeding or discharge. Mucous membranes pink and moist. NECK: Trachea midline. No JVD. CARDIOVASCULAR: Regular rate and rhythm. No murmur appreciated. RESPIRATORY: No accessory muscle use. Clear to auscultation. Breath sounds equal bilaterally. GASTROINTESTINAL: Abdomen soft, +TTP RUQ. Pt said he always has pain from his Hep C. MUSCULOSKELETAL: No obvious deformities. No clubbing. No cyanosis. No edema. NEUROLOGICAL: Lethargic but arousable and answers questions. No focal neurologic deficits. Data Data Last Documented VS Vital Signs Date Time Temp Pulse Resp B/P (MAP) Pulse Ox O2 Delivery O2 Flow Rate FiO2 04/23/18 12:30 66 18 116/66 (83) 99 Room Air 04/23/18 04:17 2.00 04/23/18 04:12 97.4 Orders Orders Electrocardiogram (04/23/18 03:55) Complete Blood Count With Diff (04/23/18 03:55) Comprehensive Metabolic Panel (04/23/18 03:55) Prothrombin Time / Inr (Pt) (04/23/18 03:55) Act Partial Throm Time (Ptt) (04/23/18 03:55) Urinalysis - C+S If Indicated (04/23/18 03:55) Arterial Blood Gas (Abg) (04/23/18 03:55) Blood Glucose (04/23/18 03:55) Sodium Chlor 0.9% 1000 Ml Inj (Ns 1000 M (04/23/18 03:55) Call Poison Control (04/23/18 03:55) Drug Screen, Random Urine (04/23/18 03:55) Alcohol (Ethanol) (04/23/18 03:55) Salicylates (Aspirin) (04/23/18 03:55) Tylenol (Acetaminophen) (04/23/18 03:55) Ammonia (04/23/18 03:55) Valproic Acid (Depakene) (04/23/18 04:00) Psych Screen (04/23/18 05:52) Valproic Acid (Depakene) (04/23/18 06:20) Electrocardiogram (04/23/18 ) Valproic Acid (Depakene) (04/23/18 09:00) Valproic Acid (Depakene) (04/23/18 12:00) Valproic Acid (Depakene) (04/23/18 15:00) Electrocardiogram (04/23/18 08:57) Electrocardiogram (04/23/18 12:00) ^ Other Nursing Orders (04/23/18 15:08) Admit Order (Ed Use Only) (04/23/18 ) Albuterol Hfa Inh (Proair Hfa Inh) (04/23/18 15:15) Pantoprazole (Protonix) (04/24/18 09:00) Budeson-Formot 160-4.5 Mcg Inh (Symbicor (04/23/18 21:00) Labs Laboratory Tests Test 04/23/18 03:55 04/23/18 04:10 04/23/18 06:15 04/23/18 08:55 Blood Gas Puncture Site RT RADIAL Blood Gas Patient Temperature 98.6 Blood Gas HCO3 19 mmol/L Blood Gas Base Excess -4.7 mmol/L Blood Gas Oxygen Saturation 89 % Arterial Blood pH 7.40 Arterial Blood Partial Pressure CO2 32 mmHg Arterial Blood Partial Pressure O2 83 mmHG Arterial Blood Oxygen Content 23.6 Vol % Arterial Blood Carboxyhemoglobin 6.2 % Arterial Blood Methemoglobin 0.8 % Blood Gas Hemoglobin 18.8 G/DL White Blood Count 18.7 TH/MM3 Red Blood Count 6.02 MIL/MM3 Hemoglobin 18.5 GM/DL Hematocrit 53.5 % Mean Corpuscular Volume 88.8 FL Mean Corpuscular Hemoglobin 30.6 PG Mean Corpuscular Hemoglobin Concent 34.5 % Red Cell Distribution Width 13.9 % Platelet Count 122 TH/MM3 Mean Platelet Volume 10.7 FL Neutrophils (%) (Auto) 70.3 % Lymphocytes (%) (Auto) 21.7 % Monocytes (%) (Auto) 7.2 % Eosinophils (%) (Auto) 0.3 % Basophils (%) (Auto) 0.5 % Neutrophils # (Auto) 13.1 TH/MM3 Lymphocytes # (Auto) 4.1 TH/MM3 Monocytes # (Auto) 1.4 TH/MM3 Eosinophils # (Auto) 0.1 TH/MM3 Basophils # (Auto) 0.1 TH/MM3 CBC Comment DIFF FINAL Differential Comment Prothrombin Time 11.4 SEC Prothromb Time International Ratio 1.1 RATIO Activated Partial Thromboplast Time 30.9 SEC Blood Urea Nitrogen 18 MG/DL Creatinine 1.36 MG/DL Random Glucose 88 MG/DL Total Protein 7.2 GM/DL Albumin 3.5 GM/DL Calcium Level 8.6 MG/DL Alkaline Phosphatase 151 U/L Aspartate Amino Transf (AST/SGOT) 48 U/L Alanine Aminotransferase (ALT/SGPT) 39 U/L Total Bilirubin 0.5 MG/DL Sodium Level 143 MEQ/L Potassium Level 3.2 MEQ/L Chloride Level 110 MEQ/L Carbon Dioxide Level 18.1 MEQ/L Anion Gap 15 MEQ/L Estimat Glomerular Filtration Rate 55 ML/MIN Ammonia 30 MCMOL/L Salicylates Level 5.1 MG/DL Acetaminophen Level LESS THAN 2.0 MCG/ML Valproic Acid (Depakene) Level 60 MCG/ML 96 MCG/ML 92 MCG/ML Ethyl Alcohol Level 46 MG/DL Test 04/23/18 12:00 04/23/18 15:08 Valproic Acid (Depakene) Level 99 MCG/ML 102 MCG/ML [facility] Medical Decision Making Medical Screen Exam Complete: Yes Emergency Medical Condition: Yes Interpretation(s) EKG: NSR 90bpm. Normal axis. Narrow QRS. QTc 444ms. No significant ST elevation or depression. EKG #2: NSR 73bpm. Normal axis. Narrow QRS. QTc 427ms. Differential Diagnosis Depakote overdose vs. polysubstance overdose vs. suicidal ideation vs. electrolyte abnormality Narrative Course 48yo M here under [place] after he tried to kill himself by ingesting #30 divalporex ER. Pt is lethargic but easily arousable and answers questions. Also follows commands. ABG showed O2 sat of 89% on RA so place on 2L NC. PH is normal at 7.40. Metabolic acidosis with respiratory compensation. Labs reviewed, leukocytosis at 18.7. H/H elevated at 18.5/53.5. Pt given NS IVF. Mild hypokalemia at 3.2, replaced with KCl IV. Creatinine mildly elevated at 1.36. AST, alk phos is elevated but at baseline. Ammonia level is 30. Alcohol 46. Acetaminophen less than 2.0. Salicylate level 5.1. Valproic acid level normal at 60. Pt has chronic abdominal pain for years and last CT a/p 03/17 showed no acute findings. Pt is resting comfortably so will not repeat CT. Poison control contacted and recommended supportive care and to repeat valproic acid level Q2 hours for 2 times after the first because this is extended release and may be normal initially. Recommend to also repeat EKG Q2 hours for 2 more times. I discussed with Dr. Perry who said that pt does not need to be admitted and can have repeat EKG and valproic acid in the ED. Repeat EKG #2 completed. Valproic acid #2 is drawn and pending. Sign out to next team to follow up and draw one more set before medically clearing pt for psych evaluation. Diagnosis Primary Impression: Overdose Qualified Codes: T50.902A - Poisoning by unspecified drugs, medicaments and biological substances, intentional self-harm, initial encounter Karla Browne DO Apr 23, 2018 04:06
[2018-04-23 04:34] LABS: AUTOMATED NEUTROPHIL # 13.1 TH/MM3 (1.8-7.7); BASOPHIL # 0.1 TH/MM3 (0-0.2); BASOPHIL % 0.5 % (0.0-2.0); EOSINOPHIL # 0.1 TH/MM3 (0-0.4); EOSINOPHIL % 0.3 % (0.0-4.0); HEMATOCRIT 53.5 % (39.0-51.0); HEMOGLOBIN 18.5 GM/DL (13.0-17.0); LYMPH % 21.7 % (9.0-44.0); LYMPHOCYTE # 4.1 TH/MM3 (1.0-4.8); MEAN CELL VOLUME 88.8 FL (80.0-100.0); MEAN CORPUSCULAR HEMOGLOBIN 30.6 PG (27.0-34.0); MEAN CORPUSCULAR HGB CONC 34.5 % (32.0-36.0); MEAN PLATELET VOLUME 10.7 FL (7.0-11.0); MONO % 7.2 % (0.0-8.0); MONOCYTE # 1.4 TH/MM3 (0-0.9); NEUT % 70.3 % (16.0-70.0); PLATELET COUNT 122 TH/MM3 (150-450); RED BLOOD COUNT 6.02 MIL/MM3 (4.50-5.90); RED CELL DISTRIBUTION WIDTH 13.9 % (11.6-17.2); WHITE BLOOD COUNT 18.7 TH/MM3 (4.0-11.0)
[2018-04-23 04:46] LABS: INTERNATIONAL NORMALIZED RATIO 1.1 RATIO; PROTHROMBIN TIME - PATIENT 11.4 SEC (9.8-11.6)
[2018-04-23 04:51] LABS: ALBUMIN 3.5 GM/DL (3.4-5.0); AST (GOT) 48 U/L (15-37); BICARBONATE 18.1 MEQ/L (21.0-32.0); BLOOD UREA NITROGEN 18 MG/DL (7-18); CALCIUM 8.6 MG/DL (8.5-10.1); CHLORIDE 110 MEQ/L (98-107); CREATININE 1.36 MG/DL (0.60-1.30); GLOMERULAR FILTRATION RATE 55 ML/MIN (>89); GLUCOSE,RANDOM 88 MG/DL (74-106); SODIUM (NA) 143 MEQ/L (136-145)
[2018-04-23 04:54] LABS: ALKALINE PHOSPHATASE 151 U/L (45-117); ALT (GPT) 39 U/L (12-78); TOTAL BILIRUBIN ADULT 0.5 MG/DL (0.2-1.0); TOTAL PROTEIN 7.2 GM/DL (6.4-8.2)
[2018-04-23 04:55] LABS: ACETAMINOPHEN LESS THAN 2.0 MCG/ML (10.0-30.0)
--- NOTE | 2018-04-23 07:15 | PD ---
Physical Exam Date Seen by Provider: Apr 23, 2018 Time Seen by Provider: 07:14 Narrative The patient is a 48-year-old male who was initially evaluated by the previous physician. Please refer to the initial history, physical, diagnostic evaluation , and treatment modality plan. The patient was signed out at 7 AM with repeat Depakote levels pending per poison control recommendations. Data Data Last Documented VS Vital Signs Date Time Temp Pulse Resp B/P (MAP) Pulse Ox O2 Delivery O2 Flow Rate FiO2 04/23/18 12:30 66 18 116/66 (83) 99 Room Air 04/23/18 04:17 2.00 04/23/18 04:12 97.4 Orders Orders Electrocardiogram (04/23/18 03:55) Complete Blood Count With Diff (04/23/18 03:55) Comprehensive Metabolic Panel (04/23/18 03:55) Prothrombin Time / Inr (Pt) (04/23/18 03:55) Act Partial Throm Time (Ptt) (04/23/18 03:55) Urinalysis - C+S If Indicated (04/23/18 03:55) Arterial Blood Gas (Abg) (04/23/18 03:55) Blood Glucose (04/23/18 03:55) Sodium Chlor 0.9% 1000 Ml Inj (Ns 1000 M (04/23/18 03:55) Call Poison Control (04/23/18 03:55) Drug Screen, Random Urine (04/23/18 03:55) Alcohol (Ethanol) (04/23/18 03:55) Salicylates (Aspirin) (04/23/18 03:55) Tylenol (Acetaminophen) (04/23/18 03:55) Ammonia (04/23/18 03:55) Valproic Acid (Depakene) (04/23/18 04:00) Psych Screen (04/23/18 05:52) Valproic Acid (Depakene) (04/23/18 06:20) Electrocardiogram (04/23/18 ) Valproic Acid (Depakene) (04/23/18 09:00) Valproic Acid (Depakene) (04/23/18 12:00) Valproic Acid (Depakene) (04/23/18 15:00) Electrocardiogram (04/23/18 08:57) Electrocardiogram (04/23/18 12:00) ^ Other Nursing Orders (04/23/18 15:08) Admit Order (Ed Use Only) (04/23/18 ) Albuterol Hfa Inh (Proair Hfa Inh) (04/23/18 15:15) Pantoprazole (Protonix) (04/24/18 09:00) (Nf) Srfhhfee-Yqzgedxavfeo-Ihhwimdacz (T (04/24/18 09:00) Budeson-Formot 160-4.5 Mcg Inh (Symbicor (04/23/18 21:00) Labs Laboratory Tests Test 04/23/18 03:55 04/23/18 04:10 04/23/18 06:15 04/23/18 08:55 Blood Gas Puncture Site RT RADIAL Blood Gas Patient Temperature 98.6 Blood Gas HCO3 19 mmol/L Blood Gas Base Excess -4.7 mmol/L Blood Gas Oxygen Saturation 89 % Arterial Blood pH 7.40 Arterial Blood Partial Pressure CO2 32 mmHg Arterial Blood Partial Pressure O2 83 mmHG Arterial Blood Oxygen Content 23.6 Vol % Arterial Blood Carboxyhemoglobin 6.2 % Arterial Blood Methemoglobin 0.8 % Blood Gas Hemoglobin 18.8 G/DL White Blood Count 18.7 TH/MM3 Red Blood Count 6.02 MIL/MM3 Hemoglobin 18.5 GM/DL Hematocrit 53.5 % Mean Corpuscular Volume 88.8 FL Mean Corpuscular Hemoglobin 30.6 PG Mean Corpuscular Hemoglobin Concent 34.5 % Red Cell Distribution Width 13.9 % Platelet Count 122 TH/MM3 Mean Platelet Volume 10.7 FL Neutrophils (%) (Auto) 70.3 % Lymphocytes (%) (Auto) 21.7 % Monocytes (%) (Auto) 7.2 % Eosinophils (%) (Auto) 0.3 % Basophils (%) (Auto) 0.5 % Neutrophils # (Auto) 13.1 TH/MM3 Lymphocytes # (Auto) 4.1 TH/MM3 Monocytes # (Auto) 1.4 TH/MM3 Eosinophils # (Auto) 0.1 TH/MM3 Basophils # (Auto) 0.1 TH/MM3 CBC Comment DIFF FINAL Differential Comment Prothrombin Time 11.4 SEC Prothromb Time International Ratio 1.1 RATIO Activated Partial Thromboplast Time 30.9 SEC Blood Urea Nitrogen 18 MG/DL Creatinine 1.36 MG/DL Random Glucose 88 MG/DL Total Protein 7.2 GM/DL Albumin 3.5 GM/DL Calcium Level 8.6 MG/DL Alkaline Phosphatase 151 U/L Aspartate Amino Transf (AST/SGOT) 48 U/L Alanine Aminotransferase (ALT/SGPT) 39 U/L Total Bilirubin 0.5 MG/DL Sodium Level 143 MEQ/L Potassium Level 3.2 MEQ/L Chloride Level 110 MEQ/L Carbon Dioxide Level 18.1 MEQ/L Anion Gap 15 MEQ/L Estimat Glomerular Filtration Rate 55 ML/MIN Ammonia 30 MCMOL/L Salicylates Level 5.1 MG/DL Acetaminophen Level LESS THAN 2.0 MCG/ML Valproic Acid (Depakene) Level 60 MCG/ML 96 MCG/ML 92 MCG/ML Ethyl Alcohol Level 46 MG/DL Test 04/23/18 12:00 04/23/18 15:08 Valproic Acid (Depakene) Level 99 MCG/ML [facility] Medical Record Reviewed: Yes Supervised Visit with RICARDO: No Interpretation(s) EKG #3 reveals normal sinus rhythm with a rate of 75. Prolonged QT with QTC of 461 ms. EKG #4 reveals normal sinus rhythm with a 137. Laboratory Tests Test 04/23/18 03:55 04/23/18 04:10 04/23/18 06:15 04/23/18 08:55 Blood Gas Puncture Site RT RADIAL Blood Gas Patient Temperature 98.6 Blood Gas HCO3 19 mmol/L Blood Gas Base Excess -4.7 mmol/L Blood Gas Oxygen Saturation 89 % Arterial Blood pH 7.40 Arterial Blood Partial Pressure CO2 32 mmHg Arterial Blood Partial Pressure O2 83 mmHG Arterial Blood Oxygen Content 23.6 Vol % Arterial Blood Carboxyhemoglobin 6.2 % Arterial Blood Methemoglobin 0.8 % Blood Gas Hemoglobin 18.8 G/DL White Blood Count 18.7 TH/MM3 Red Blood Count 6.02 MIL/MM3 Hemoglobin 18.5 GM/DL Hematocrit 53.5 % Mean Corpuscular Volume 88.8 FL Mean Corpuscular Hemoglobin 30.6 PG Mean Corpuscular Hemoglobin Concent 34.5 % Red Cell Distribution Width 13.9 % Platelet Count 122 TH/MM3 Mean Platelet Volume 10.7 FL Neutrophils (%) (Auto) 70.3 % Lymphocytes (%) (Auto) 21.7 % Monocytes (%) (Auto) 7.2 % Eosinophils (%) (Auto) 0.3 % Basophils (%) (Auto) 0.5 % Neutrophils # (Auto) 13.1 TH/MM3 Lymphocytes # (Auto) 4.1 TH/MM3 Monocytes # (Auto) 1.4 TH/MM3 Eosinophils # (Auto) 0.1 TH/MM3 Basophils # (Auto) 0.1 TH/MM3 CBC Comment DIFF FINAL Differential Comment Prothrombin Time 11.4 SEC Prothromb Time International Ratio 1.1 RATIO Activated Partial Thromboplast Time 30.9 SEC Blood Urea Nitrogen 18 MG/DL Creatinine 1.36 MG/DL Random Glucose 88 MG/DL Total Protein 7.2 GM/DL Albumin 3.5 GM/DL Calcium Level 8.6 MG/DL Alkaline Phosphatase 151 U/L Aspartate Amino Transf (AST/SGOT) 48 U/L Alanine Aminotransferase (ALT/SGPT) 39 U/L Total Bilirubin 0.5 MG/DL Sodium Level 143 MEQ/L Potassium Level 3.2 MEQ/L Chloride Level 110 MEQ/L Carbon Dioxide Level 18.1 MEQ/L Anion Gap 15 MEQ/L Estimat Glomerular Filtration Rate 55 ML/MIN Ammonia 30 MCMOL/L Salicylates Level 5.1 MG/DL Acetaminophen Level LESS THAN 2.0 MCG/ML Valproic Acid (Depakene) Level 60 MCG/ML 96 MCG/ML 92 MCG/ML Ethyl Alcohol Level 46 MG/DL Test 04/23/18 12:00 04/23/18 15:08 Valproic Acid (Depakene) Level 99 MCG/ML Differential Diagnosis Differential diagnosis includes Depakote overdose, substance-induced mood disorder, alcohol intoxication, depressive disorder, adjustment reaction, stress reaction, polysubstance abuse. Narrative Course The patient was initially evaluated by the previous physician. Please refer to the initial history, physical, diagnostic evaluation, and treatment modality plan. The patient was signed out at 7 AM with repeat Depakote levels pending. The Depakote levels are within normal limits the patient be medically cleared to be evaluated by psychiatry. The patient's second Depakote level was elevated, therefore, the third Depakote level was ordered for 9 AM. Initial QTC was 444 corrected, the second EKG revealed a QTC of 427, however, the third EKG did reveal a prolonged QTC of 461 ms. I discussed the patient with a psychiatrist, we both agree that the levels are in the therapeutic range, less than 100, patient will be admitted to the psychiatric unit. If the Depakote level does increase, the patient may need a medical consultation. The patient is stable. Diagnosis Primary Impression: Overdose Qualified Codes: T50.902A - Poisoning by unspecified drugs, medicaments and biological substances, intentional self-harm, initial encounter Admitting Information Admitting Physician Requests: Admit Condition: Stable Donny Hughes MD Apr 23, 2018 07:15
--- NOTE | 2018-04-23 14:28 | EKG ---
Date Performed: 04/23/2018 Time Performed: 06:23:35 PTAGE: 48 years EKG: Sinus rhythm NORMAL ECG PREVIOUS TRACING : 04/23/2018 04.20 Since the previous tracing, no significant change noted DOCTOR: Kei Samayoa Interpretating Date/Time 04/23/2018 14:26:22
--- NOTE | 2018-04-23 14:31 | EKG ---
Date Performed: 04/23/2018 Time Performed: 04:20:49 PTAGE: 48 years EKG: Sinus rhythm POSSIBLE RIGHT ATRIAL ENLARGEMENT BORDERLINE ECG PREVIOUS TRACING : 03/17/2018 12.55 Since the previous tracing, no significant change noted DOCTOR: Kei Samayoa Interpretating Date/Time 04/23/2018 14:27:50
[2018-04-23] MEDS ORDERED: ACETAMINOPHEN 325 MG TAB PO PRN (15:15)
[2018-04-23] MEDS ORDERED: LORazepam 2 MG/ML VIAL IM PRN ×4 (15:15)
[2018-04-23] MEDS ORDERED: BENZTROPINE MESYLATE 2 MG/2 ML VIAL IM PRN (15:15)
[2018-04-23] MEDS ORDERED: BENZTROPINE MESYLATE 1 MG TAB PO PRN (15:15)
[2018-04-23] MEDS ORDERED: MAGNESIUM HYDROXIDE SUSP 30 ML CUP PO PRN (15:15)
[2018-04-23] MEDS ORDERED: LORazepam 1 MG TAB PO PRN (15:15)
[2018-04-23] MEDS ORDERED: FLUMAZENIL 0.5 MG/5 ML VIAL IV PUSH PRN (15:15)
[2018-04-23] MEDS ORDERED: LORazepam 2 MG TAB PO PRN (15:15)
[2018-04-23] MEDS ORDERED: ALBUTEROL SULFATE 90 MCG/ACT HFA 8 GM INHALER INH PRN (15:15)
[2018-04-23] MEDS ORDERED: hydrOXYzine HCL 50 MG TAB PO PRN (15:15)
[2018-04-23] MEDS ORDERED: diphenhydrAMINE HCL 50 MG CAP PO PRN (15:15)
[2018-04-23] MEDS ORDERED: ALUMINUM/MAGNESIUM/SIMETH 30 ML CUP PO PRN (15:15)
[2018-04-23] MEDS ORDERED: NICOTINE 21 MG/24 HR PATCH T-DERMAL PRN (15:15)
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
--- NOTE | 2018-04-23 16:54 | PD.CONS ---
HPI Service [facility] ([place], [place])ists Consult Requested By Dr. Soriano Reason for Consult Depakote overdose Primary Care Physician No Primary Care Physician Diagnoses: History of Present Illness This is a 48-year-old male with history of HIV with CD4 count in the 700s, hepatitis C, ITP and COPD who presented emergency department [place] acted after intentional overdose with 30 pills of Depakote ER 250 mg each. Upon initial ED evaluation, the patient was lethargic but arousable. Per patient, he was an intentional overdose. Presently, he is sleepy but easily arousable. He denies any chest pain or palpitations, focal weakness, numbness, nausea, vomiting or shortness of breath. He had serial EKGs in the emergency department, he had one EKG with QT prolongation of 461 ms. Patient was asymptomatic. Depakote levels have been relatively stable within therapeutic range. Review of Systems ROS Limitations: Other (All other pertinent systems were reviewed and are negative.) Past Family Social History Allergies: Coded Allergies: bee venom protein (honey bee) (Verified Allergy, Severe, Anaphylaxis, ) No Known Allergies (Unverified Allergy, Unknown, 03/17/18) Past Medical History HIV with CD4 count in the 700s Hepatitis C ITP COPD PTSD Past Surgical History Splenectomy Left ankle surgery next Reported Medications Pantoprazole (Pantoprazole Sodium) 40 Mg Tab 40 Mg PO DAILY Proair Hfa 8.5 GM Inh (Albuterol Sulfate) 90 Mcg/Act Aer 1 Puff INH Q4H PRN 108 mcg/actuation Advair Diskus Inh (Fluticasone-Salmeterol Inh) 250-50 Mcg/Blist Aer 2 Puff INH BID Rinse mouth after use. [place] (Hydrocodone-Acetaminophen) 10-325 Mg Tab 1 Tab PO Q4H PRN Triumeq (Giyggmnd-Csmeqjcmzydg-Tlfnpaxokx) 600-50-300 Mg Tab 1 Tab PO DAILY Hazardous agent; use appropriate precautions for handling & disposal. Family History Mother had breast cancer Social History Smokes a pack a day since he was 10 years old Physical Exam Vital Signs Vital Signs Date Time Temp Pulse Resp B/P (MAP) Pulse Ox O2 Delivery O2 Flow Rate FiO2 04/23/18 16:21 71 18 110/73 (85) 98 Room Air 04/23/18 12:30 66 18 116/66 (83) 99 Room Air 04/23/18 07:30 85 18 127/71 (89) 99 Room Air 04/23/18 04:17 94 Nasal Cannula 2.00 04/23/18 04:17 98 Nasal Cannula 2.00 04/23/18 04:12 97.4 87 10 127/80 (96) 97 Physical Exam Not in distress, well-nourished, looks stated age, a little unkempt PERRL, pink conjunctiva without injection, anicteric Nose without bleeding, airway patent Supple neck, no masses or thyromegaly, trachea midline Normal rate and regular rhythm, no murmurs gallops or rubs appreciated. Clear to auscultation and symmetric bilaterally, normal respiratory effort. Normal bowel sounds, soft, non-tender, nondistended, no guarding. Extremities without clubbing, cyanosis, or edema. No rash of generalized distribution. Skin is warm and dry. AAO x3, no cranial nerve deficits, moves all 4 extremities, no focal neurologic deficits Laboratory Laboratory Tests Test 04/23/18 03:55 04/23/18 04:10 04/23/18 06:15 04/23/18 08:55 Blood Gas Puncture Site RT RADIAL Blood Gas Patient Temperature 98.6 Blood Gas HCO3 19 Blood Gas Base Excess -4.7 Blood Gas Oxygen Saturation 89 Arterial Blood pH 7.40 Arterial Blood Partial Pressure CO2 32 Arterial Blood Partial Pressure O2 83 Arterial Blood Oxygen Content 23.6 Arterial Blood Carboxyhemoglobin 6.2 Arterial Blood Methemoglobin 0.8 Blood Gas Hemoglobin 18.8 White Blood Count 18.7 Red Blood Count 6.02 Hemoglobin 18.5 Hematocrit 53.5 Mean Corpuscular Volume 88.8 Mean Corpuscular Hemoglobin 30.6 Mean Corpuscular Hemoglobin Concent 34.5 Red Cell Distribution Width 13.9 Platelet Count 122 Mean Platelet Volume 10.7 Neutrophils (%) (Auto) 70.3 Lymphocytes (%) (Auto) 21.7 Monocytes (%) (Auto) 7.2 Eosinophils (%) (Auto) 0.3 Basophils (%) (Auto) 0.5 Neutrophils # (Auto) 13.1 Lymphocytes # (Auto) 4.1 Monocytes # (Auto) 1.4 Eosinophils # (Auto) 0.1 Basophils # (Auto) 0.1 CBC Comment DIFF FINAL Differential Comment Prothrombin Time 11.4 Prothromb Time International Ratio 1.1 Activated Partial Thromboplast Time 30.9 Blood Urea Nitrogen 18 Creatinine 1.36 Random Glucose 88 Total Protein 7.2 Albumin 3.5 Calcium Level 8.6 Alkaline Phosphatase 151 Aspartate Amino Transf (AST/SGOT) 48 Alanine Aminotransferase (ALT/SGPT) 39 Total Bilirubin 0.5 Sodium Level 143 Potassium Level 3.2 Chloride Level 110 Carbon Dioxide Level 18.1 Anion Gap 15 Estimat Glomerular Filtration Rate 55 Ammonia 30 Salicylates Level 5.1 Acetaminophen Level LESS THAN 2.0 Valproic Acid (Depakene) Level 60 96 92 Ethyl Alcohol Level 46 Test 04/23/18 12:00 04/23/18 15:08 Valproic Acid (Depakene) Level 99 102 Result Diagram: 04/23/1840904/23/18409 Assessment and Plan Assessment and Plan This is a 48-year-old male, will be admitted to the med psych unit for Depakote overdose. Attempted suicide-further management per psychiatry Depakote toxicity secondary to intentional overdose -serial EKG have been done, longest corrected QT is 461 ms, continue to monitor daily. Depakote within normal limits, monitor and recheck tomorrow, check LFTs, ammonia and CMP. Neurochecks HIV-allegedly last CD4 count is more than 700. Continue HAART medications. COPD-restart Advair with pro-air as needed. Dehydration-encourage oral fluid intake, recheck BMP and CBC tomorrow. DVT prophylaxis: Low risk, ambulatory. Julissa Flood MD Apr 23, 2018 16:54
[2018-04-23 17:08] LABS: BILIRUBIN, URINE NEG (NEG); BLOOD, URINE NEG (NEG); GLUCOSE,URINE NEG (NEG); KETONE, URINE TRACE mg/dL (NEG); MUCUS URINE FEW /lpf (OCC); NITRITE,URINE NEG (NEG); SQUAMOUS EPITHELIAL CELL URINE <1 /hpf (0-5); URINE COLOR YELLOW (YELLW/STRAW); URINE LEUKOCYTE ESTERASE NEG (NEG)
[2018-04-23] MEDS: BUDESONIDE-FORMOTEROL 160/4.5 MCG INHALER INH SCH (21:00)
[2018-04-23] MEDS: PRAZOSIN HCL 1 MG CAP PO SCH (21:00)
[2018-04-24 01:28] VITALS: BP 122/73; PULSE 71; RESP 16; TEMP 96.8; O2SAT 97
[2018-04-24 05:58] VITALS: BP 105/63; PULSE 61; RESP 16; TEMP 98.4; O2SAT 98
[2018-04-24 07:38] LABS: AUTOMATED NEUTROPHIL # 3.9 TH/MM3 (1.8-7.7); BASOPHIL # 0.1 TH/MM3 (0-0.2); BASOPHIL % 1.1 % (0.0-2.0); EOSINOPHIL # 0.4 TH/MM3 (0-0.4); EOSINOPHIL % 4.8 % (0.0-4.0); HEMATOCRIT 52.7 % (39.0-51.0); HEMOGLOBIN 17.8 GM/DL (13.0-17.0); LYMPH % 37.6 % (9.0-44.0); LYMPHOCYTE # 3.1 TH/MM3 (1.0-4.8); MEAN CELL VOLUME 89.8 FL (80.0-100.0); MEAN CORPUSCULAR HEMOGLOBIN 30.3 PG (27.0-34.0); MEAN CORPUSCULAR HGB CONC 33.7 % (32.0-36.0); MEAN PLATELET VOLUME 9.5 FL (7.0-11.0); MONO % 9.5 % (0.0-8.0); MONOCYTE # 0.8 TH/MM3 (0-0.9); PLATELET COUNT 110 TH/MM3 (150-450); RED BLOOD COUNT 5.87 MIL/MM3 (4.50-5.90); RED CELL DISTRIBUTION WIDTH 13.9 % (11.6-17.2); WHITE BLOOD COUNT 8.3 TH/MM3 (4.0-11.0)
[2018-04-24 08:15] LABS: ALBUMIN 2.8 GM/DL (3.4-5.0); ALT (GPT) 32 U/L (12-78); AST (GOT) 38 U/L (15-37); BICARBONATE 22.6 MEQ/L (21.0-32.0); BLOOD UREA NITROGEN 19 MG/DL (7-18); CALCIUM 8.1 MG/DL (8.5-10.1); CHLORIDE 109 MEQ/L (98-107); CREATININE 1.05 MG/DL (0.60-1.30); GLOMERULAR FILTRATION RATE 75 ML/MIN (>89); GLUCOSE,RANDOM 77 MG/DL (74-106); SODIUM (NA) 141 MEQ/L (136-145)
[2018-04-24 08:18] LABS: CHOLESTEROL 79 MG/DL (120-200); CHOLESTEROL/ HDL RATIO 1.81 RATIO; HDL CHOLESTEROL 43.6 MG/DL (40.0-60.0); LDL CHOLESTEROL 24 MG/DL (0-99); TOTAL BILIRUBIN ADULT 0.4 MG/DL (0.2-1.0); TOTAL PROTEIN 6.2 GM/DL (6.4-8.2); TRIGLYCERIDES 58 MG/DL (42-150)
[2018-04-24 08:19] LABS: ALKALINE PHOSPHATASE 147 U/L (45-117)
[2018-04-24] MEDS ORDERED: NON-FORMULARY DRUG (Abacavir-Dolutegravir-Lamivudine (Triumeq) 1 TAB) PO SCH (09:00)
[2018-04-24] MEDS: PANTOPRAZOLE SOD 40 MG DELAYED RELEASE TAB PO SCH (10:01)
[2018-04-24] MEDS: ESCITALOPRAM OXALATE 10 MG TAB PO SCH (10:01)
[2018-04-24] MEDS: BUDESONIDE-FORMOTEROL 160/4.5 MCG INHALER INH SCH ×2 (10:01→21:00)
[2018-04-24] MEDS: ABACAVIR SULFATE 300 MG TAB PO SCH (10:01)
[2018-04-24] MEDS: DOLUTEGRAVIR SODIUM 50 MG TAB PO SCH (10:01)
[2018-04-24] MEDS: FOLIC ACID 1 MG TAB PO SCH (10:01)
[2018-04-24] MEDS: MULTIVITAMINS/MINERALS THERAPEUTIC TAB PO SCH (10:01)
[2018-04-24] MEDS: THIAMINE HCL 100 MG TAB PO SCH (10:02)
--- NOTE | 2018-04-24 10:43 | HHI.PR ---
Subjective Remarks Follow up on patient with intentional Depakote OD. Patient seen and examined. Patient complains of still feeling "groggy". He denies any confusion or memory loss. He denies any fever or chills. He denies any headache, dizziness or lightheadedness. He denies any palpitations. He denies any N/V or abdominal pain. He denies any chest pain or shortness of breath. Objective Vitals Vital Signs Date Time Temp Pulse Resp B/P (MAP) Pulse Ox O2 Delivery O2 Flow Rate FiO2 04/24/18 05:58 98.4 61 16 105/63 (77) 98 04/24/18 01:28 96.8 71 16 122/73 (89) 97 04/23/18 22:05 97.0 74 15 117/58 (77) 98 04/23/18 18:02 97.7 89 16 132/79 (96) 98 04/23/18 16:53 04/23/18 16:21 71 18 110/73 (85) 98 Room Air 04/23/18 12:30 66 18 116/66 (83) 99 Room Air I/O 04/23/18 04/23/18 04/23/18 04/24/18 04/24/18 04/24/18 07:00 15:00 23:00 07:00 15:00 23:00 Intake Total 480 ml 960 ml 720 ml Balance 480 ml 960 ml 720 ml Intake Oral 480 ml 960 ml 720 ml # Voids 1 Result Diagram: 04/24/1818 04/24/1818 Objective Remarks GENERAL: WDWN male patient, INAD. Appears sleepy but is easily able to carry on conversation with me. Oriented x 3. SKIN: Focused skin assessment warm/dry, no generalized rash. HEAD: Atraumatic. Normocephalic. EYES: EOMI. No scleral icterus. No injection or drainage. ENT: No nasal bleeding or discharge. Mucous membranes pink and moist. NECK: Trachea midline. CARDIOVASCULAR: Regular rate and rhythm. No murmur appreciated. RESPIRATORY: No accessory muscle use. Clear to auscultation. Breath sounds equal bilaterally. GASTROINTESTINAL: Abdomen soft, nondistended, +TTP RUQ, chronic per patient report. +BS. MUSCULOSKELETAL: No obvious deformities. No edema noted. NEUROLOGICAL: Lethargic but arousable, answers questions appropriately. Oriented x 3. No cranial nerve deficits. Moves all extremities spontaneously. No focal neurologic deficits. PSYCHIATRIC: Calm and cooperative with exam. Procedures None A/P Assessment and Plan 48-year-old male with HIV HAART med compliant, Hep C, ITP and COPD admitted to the med psych unit for Depakote overdose and hospitalist services consulted for assistance with medical management. Attempted suicide, intentional Depakote OD PTSD -management per psychiatry Acute metabolic encephalopathy secondary to depakote toxicity Depakote toxicity secondary to intentional overdose longest corrected QT is 461 ms, last QTc 429 Valproic acid dropped from 102 to 92 but bumped up to 111 -monitor for QT prolongation with serial EKGs -continue to monitor serial Depakote levels -monitor respiratory status, vital signs -continue neurochecks Hyperammonemia, mild, secondary to above Ammonia level 41 -give dose 30ml lactulose x 1 -repeat ammonia level THOMAS, secondary to dehydration creatinine improved 1.36 to 1.05 s/p IVF -encourage oral hydration -avoid nephrotoxic agents -monitor kidney function as indicated Transaminitis, mild, secondary to depakote toxicity -avoid hepatotoxic agents -monitor LFTs as indicated, repeat CMP in am Polysubstance abuse Urine tox screen + benzos and cocaine -discussed cessation -continue CIWA -continue on daily thiamine/MVI/folate -fall and seizure precautions Thrombocytopenia No active bleeding noted -monitor for signs/sx bleeding. -Repeat CBC in am HIV Hep C, chronic RUQ pain allegedly last CD4 count is more than 700 -standard precautions -Continue HAART medications COPD, not in acute exacerbation -monitor respiratory status -continue on bronchodilators -Pro Air as needed DVT prophylaxis: Low risk, ambulatory. Vidhi Gunn Apr 24, 2018 10:43
[2018-04-24] MEDS ORDERED: LACTULOSE SYRUP 20 GM/30 ML CUP PO ONE (10:45)
[2018-04-24 11:55] VITALS: BP 114/63; PULSE 68; RESP 16; TEMP 99.7; O2SAT 96
--- NOTE | 2018-04-24 14:57 | EKG ---
Date Performed: 04/23/2018 Time Performed: 12:00:43 PTAGE: 48 years EKG: Sinus rhythm NORMAL ECG PREVIOUS TRACING 04/23/18 Since the previous tracing, no significant change noted DOCTOR: Wilfredo Cooper Interpretating Date/Time 04/24/2018 14:53:29
--- NOTE | 2018-04-24 14:57 | EKG ---
Date Performed: 04/23/2018 Time Performed: 08:57:36 PTAGE: 48 years EKG: Sinus rhythm PROLONGED QT INTERVAL ABNORMAL ECG PREVIOUS TRACING 04/23/18 Since the previous tracing, no significant change noted DOCTOR: Wilfredo Cooper Interpretating Date/Time 04/24/2018 14:53:15
--- NOTE | 2018-04-24 14:58 | EKG ---
Date Performed: 04/23/2018 Time Performed: 15:24:07 PTAGE: 48 years EKG: Sinus rhythm SEPTAL MYOCARDIAL INFARCTION ABNORMAL ECG PREVIOUS TRACING : 04/23/2018 12.00 Consider anteoseptal myocardial infarction - age indetermin ate DOCTOR: Wilfredo Cooper Interpretating Date/Time 04/24/2018 14:53:44
--- NOTE | 2018-04-24 14:58 | EKG ---
Date Performed: 04/24/2018 Time Performed: 04:56:32 PTAGE: 48 years EKG: Sinus rhythm SEPTAL MYOCARDIAL INFARCTION , OF INDETERMINATE AGE ABNORMAL ECG PREVIOUS TRACING : 04/23/2018 15.24 Consider anteroseptal myocardial infarction - age indetermi axel DOCTOR: Wilfredo Cooper Interpretating Date/Time 04/24/2018 14:54:01
--- NOTE | 2018-04-24 14:58 | EKG ---
Date Performed: 04/24/2018 Time Performed: 08:11:56 PTAGE: 48 years EKG: Sinus rhythm BORDERLINE RIGHT AXIS DEVIATION BORDERLINE ECG PREVIOUS TRACING : 04/24/2018 04.56 Since the previous tracing, no significant change noted DOCTOR: Wilfredo Cooper Interpretating Date/Time 04/24/2018 14:54:21
[2018-04-24 16:50] VITALS: BP 112/69; PULSE 74; RESP 16; TEMP 98.6; O2SAT 97
--- NOTE | 2018-04-24 17:16 | HHI.PYPN ---
Subjective Chief Complaint: Depakote overdose Remarks Patient seen for follow-up, chart reviewed. Discussion nursing staff reported the patient with limited interaction with staff, compliant with medications. Patient was found lying hospital bed noted B superficially cooperative stating that he just feels very tired and did not elaborate. Patient states that he is feeling "okay" but that he feels that he is having increased anxiety at the same time stated that he is sleeping a lot. Patient reports eating and drinking well and having spoken to his fiance recently. When asked about circumstances of brought to the hospital he states "it is a long story" and did not elaborate. Patient this time denying any suicide ideations continues report feeling down depressed due to recent relationship discord with his fianc e. Patient denies any perceptional service of delusions at this time. Review of Systems Except as stated in HPI: all other systems reviewed are Neg Mental Status Examination Appearance: Disheveled Consciousness: Alert Orientation: x4 Motor Activity: Normal gait Speech: Unremarkable Language: Adequate Fund of Knowledge: Adequate Attention and Concentration: Adequate Memory: Unremarkable (Grossly intact on clinical exam) Mood: Other (Dysphoric) Affect: Other (Restricted) Thought Process & Associations: Intact, Logical, Linear Thought Content: Appropriate Hallucination Type: None Delusion Type: None Suicidal Ideation: No (Unclear whether patient is reliable to contract for safety) Suicidal Plan: No Suicidal Intention: No Homicidal Ideation: No Homicidal Plan: No Homicidal Intention: No Insight: Fair Judgment: Impulsive Results Labs Test 04/23/18 21:40 04/24/18 02:22 04/24/18 07:18 04/24/18 12:14 Valproic Acid (Depakene) Level 97 MCG/ML 92 MCG/ML 111 MCG/ML 112 MCG/ML White Blood Count 8.3 TH/MM3 Red Blood Count 5.87 MIL/MM3 Hemoglobin 17.8 GM/DL Hematocrit 52.7 % Mean Corpuscular Volume 89.8 FL Mean Corpuscular Hemoglobin 30.3 PG Mean Corpuscular Hemoglobin Concent 33.7 % Red Cell Distribution Width 13.9 % Platelet Count 110 TH/MM3 Mean Platelet Volume 9.5 FL Neutrophils (%) (Auto) 47.0 % Lymphocytes (%) (Auto) 37.6 % Monocytes (%) (Auto) 9.5 % Eosinophils (%) (Auto) 4.8 % Basophils (%) (Auto) 1.1 % Neutrophils # (Auto) 3.9 TH/MM3 Lymphocytes # (Auto) 3.1 TH/MM3 Monocytes # (Auto) 0.8 TH/MM3 Eosinophils # (Auto) 0.4 TH/MM3 Basophils # (Auto) 0.1 TH/MM3 CBC Comment DIFF FINAL Differential Comment Blood Urea Nitrogen 19 MG/DL Creatinine 1.05 MG/DL Random Glucose 77 MG/DL Total Protein 6.2 GM/DL Albumin 2.8 GM/DL Calcium Level 8.1 MG/DL Alkaline Phosphatase 147 U/L Aspartate Amino Transf (AST/SGOT) 38 U/L Alanine Aminotransferase (ALT/SGPT) 32 U/L Total Bilirubin 0.4 MG/DL Sodium Level 141 MEQ/L Potassium Level 3.8 MEQ/L Chloride Level 109 MEQ/L Carbon Dioxide Level 22.6 MEQ/L Anion Gap 9 MEQ/L Estimat Glomerular Filtration Rate 75 ML/MIN Ammonia 41 MCMOL/L Triglycerides Level 58 MG/DL Cholesterol Level 79 MG/DL LDL Cholesterol 24 MG/DL HDL Cholesterol 43.6 MG/DL Cholesterol/HDL Ratio 1.81 RATIO Test 04/24/18 14:49 Valproic Acid (Depakene) Level 89 MCG/ML Vitals/IOs Vital Signs Date Time Temp Pulse Resp B/P (MAP) Pulse Ox O2 Delivery O2 Flow Rate FiO2 04/24/18 11:55 99.7 68 16 114/63 (80) 96 04/23/18 16:21 Room Air 04/23/18 04:17 2.00 Intake and Output 04/24/18 04/24/18 04/25/18 08:00 16:00 00:00 Intake Total 960 ml 720 ml Balance 960 ml 720 ml Assessment & Plan Problem List: (1) Adjustment disorder with mixed disturbance of emotions and conduct ICD Codes: F43.25 - Adjustment disorder with mixed disturbance of emotions and conduct (2) Chronic post-traumatic stress disorder (PTSD) ICD Codes: F43.12 - Post-traumatic stress disorder, chronic Assessment & Plan Patient this time continues to report feeling depressed as well as continues to be noted to be very dysphoric and with limited engagement interview today. Patient did deny suicide ideations today. We will continue current treatment. We will continue to monitor with behavior. Continue to encourage patient to maintain personal hygiene and participate in groups and activities. Discharge planning in progress. Justification for Cont. Inpt. At risk for further decompensation if at lower level of care Discharge Planning To be determined. Request HC Surrog/Guard Advoc?: No El Donaldson MD Apr 24, 2018 17:16
[2018-04-24] MEDS: PRAZOSIN HCL 1 MG CAP PO SCH (21:00)
[2018-04-24 21:34] VITALS: BP 118/76; PULSE 69; RESP 18; TEMP 98.9
[2018-04-25 01:00] VITALS: BP 122/74; PULSE 53; RESP 16; TEMP 97.4
[2018-04-25 05:38] VITALS: BP 120/75; PULSE 59; RESP 16; TEMP 97.9
[2018-04-25] MEDS: PANTOPRAZOLE SOD 40 MG DELAYED RELEASE TAB PO SCH (08:13)
[2018-04-25] MEDS: DOLUTEGRAVIR SODIUM 50 MG TAB PO SCH (08:13)
[2018-04-25] MEDS: MULTIVITAMINS/MINERALS THERAPEUTIC TAB PO SCH (08:13)
[2018-04-25] MEDS: FOLIC ACID 1 MG TAB PO SCH (08:13)
[2018-04-25] MEDS: BUDESONIDE-FORMOTEROL 160/4.5 MCG INHALER INH SCH ×2 (08:14→21:00)
[2018-04-25] MEDS: THIAMINE HCL 100 MG TAB PO SCH (08:14)
[2018-04-25] MEDS: ABACAVIR SULFATE 300 MG TAB PO SCH (08:14)
[2018-04-25] MEDS: ESCITALOPRAM OXALATE 10 MG TAB PO SCH (08:14)
[2018-04-25 08:24] LABS: HEMOGLOBIN 18.5 GM/DL (13.0-17.0); MEAN CELL VOLUME 88.3 FL (80.0-100.0); MEAN CORPUSCULAR HEMOGLOBIN 30.2 PG (27.0-34.0); MEAN CORPUSCULAR HGB CONC 34.3 % (32.0-36.0); MEAN PLATELET VOLUME 10.3 FL (7.0-11.0); PLATELET COUNT 121 TH/MM3 (150-450); RED BLOOD COUNT 6.12 MIL/MM3 (4.50-5.90); RED CELL DISTRIBUTION WIDTH 13.9 % (11.6-17.2); WHITE BLOOD COUNT 9.4 TH/MM3 (4.0-11.0)
[2018-04-25 08:26] LABS: ALBUMIN 3.2 GM/DL (3.4-5.0); AST (GOT) 34 U/L (15-37); BICARBONATE 23.3 MEQ/L (21.0-32.0); BLOOD UREA NITROGEN 18 MG/DL (7-18); CALCIUM 8.4 MG/DL (8.5-10.1); CHLORIDE 109 MEQ/L (98-107); CREATININE 1.12 MG/DL (0.60-1.30); GLOMERULAR FILTRATION RATE 69 ML/MIN (>89); GLUCOSE,RANDOM 126 MG/DL (74-106); SODIUM (NA) 141 MEQ/L (136-145)
[2018-04-25 08:27] LABS: ALT (GPT) 32 U/L (12-78)
[2018-04-25 08:29] LABS: ALKALINE PHOSPHATASE 156 U/L (45-117); TOTAL BILIRUBIN ADULT 0.4 MG/DL (0.2-1.0); TOTAL PROTEIN 6.7 GM/DL (6.4-8.2)
[2018-04-25 10:30] VITALS: BP 133/82; PULSE 67; RESP 16; TEMP 98.5; O2SAT 94
--- NOTE | 2018-04-25 14:13 | EKG ---
Date Performed: 04/25/2018 Time Performed: 05:33:11 PTAGE: 48 years EKG: SINUS BRADYCARDIA SEPTAL MYOCARDIAL INFARCTION , OF INDETERMINATE AGE ABNORMAL ECG Compared to prior electrocardiogram, Septal infarct pattern is present although this could be related to lead placement. Clinical correlation suggested. PREVIOUS TRACING : 04/24/2018 08.11 DOCTOR: Ismael Calderon Interpretating Date/Time 04/25/2018 14:11:45
--- NOTE | 2018-04-25 14:30 | HHI.PR ---
Subjective Remarks Follow-up for Depakote overdose. The patient is seen lying in bed watching TV. He is AAO 4. He denies any medical complaints. Denies any headache, lightheadedness, dizziness, weakness, chest pain, shortness of breath, or abdominal complaints. He is tolerating oral intake. Objective Vitals Vital Signs Date Time Temp Pulse Resp B/P (MAP) Pulse Ox O2 Delivery O2 Flow Rate FiO2 04/25/18 10:30 98.5 67 16 133/82 (99) 94 04/25/18 05:38 97.9 59 16 120/75 (90) 04/25/18 01:00 97.4 53 16 122/74 (90) 04/24/18 21:34 98.9 69 18 118/76 (90) 04/24/18 16:50 98.6 74 16 112/69 (83) 97 I/O 04/24/18 04/24/18 04/24/18 04/25/18 04/25/18 04/25/18 06:59 14:59 22:59 06:59 14:59 22:59 Intake Total 960 ml 720 ml 1920 ml 1920 ml 600 ml Balance 960 ml 720 ml 1920 ml 1920 ml 600 ml Intake Oral 960 ml 720 ml 1920 ml 1920 ml 600 ml # Voids 1 2 Result Diagram: 04/25/18 0800 04/25/18 0800 Objective Remarks GENERAL: Well-nourished, well-developed middle-aged male patient in [facility]. SKIN: Warm and dry. No rash. HEENT: Normocephalic. Atraumatic. Pupils equal and round. Mucous membranes pink and moist. CARDIOVASCULAR: Regular rate and rhythm. No murmur appreciated. RESPIRATORY: No accessory muscle use. Clear to auscultation. Breath sounds equal bilaterally. GASTROINTESTINAL: Abdomen soft, non-tender, nondistended. Normoactive bowel sounds x4. MUSCULOSKELETAL: No obvious deformities. Extremities without clubbing, cyanosis , or edema. NEUROLOGICAL: Awake and alert. No obvious cranial nerve deficits. Motor grossly within normal limits. Moving all extremities spontaneously. Normal speech. Procedures None Medications and IVs Current Medications Medications (Trade) Dose Ordered Sig/Deanna Route Start Time Stop Time Status Last Admin (Proair Hfa Inh) 1 puff Q4H PRN INH 04/23/18 15:15 (Protonix) 40 mg DAILY PO 04/24/18 09:00 04/25/18 08:13 (Symbicort 160-4.5 Mcg Inh) 1 puff BID INH 04/23/18 21:00 04/25/18 08:14 (Benadryl) 50 mg HS PRN PO 04/23/18 15:15 (Tylenol) 650 mg Q4H PRN PO 04/23/18 15:15 (Milk Of Magnesia Liq) 30 ml DAILY PRN PO 04/23/18 15:15 (Mag-Al Plus Susp Liq) 30 ml Q6H PRN PO 04/23/18 15:15 (Habitrol 21 Mg Patch.24 Hr) 1 patch DAILY PRN T-DERMAL 04/23/18 15:15 (Atarax) 50 mg Q6H PRN PO 04/23/18 15:15 (Cogentin) 1 mg Q12H PRN PO 04/23/18 15:15 (Cogentin Inj) 1 mg Q12H PRN IM 04/23/18 15:15 (Lexapro) 10 mg DAILY PO 04/24/18 09:00 04/25/18 08:14 (Minipress) 1 mg HS PO 04/23/18 21:00 (Folate) 1 mg DAILY PO 04/24/18 09:00 04/29/18 08:59 04/25/18 08:13 (Vitamin B1) 100 mg DAILY PO 04/24/18 09:00 04/25/18 08:14 (Theragran M Tab) 1 tab DAILY PO 04/24/18 09:00 04/29/18 08:59 04/25/18 08:13 (Romazicon Inj) 0.2 mg Q1M PRN IV PUSH 04/23/18 15:15 (Ativan) 1 mg Q4H PRN PO 04/23/18 15:15 (Ativan Inj) 1 mg Q4H PRN IM 04/23/18 15:15 (Ativan) 2 mg Q2H PRN PO 04/23/18 15:15 (Ativan Inj) 2 mg Q2H PRN IM 04/23/18 15:15 (Ativan Inj) 2 mg Q1H PRN IM 04/23/18 15:15 (Ativan Inj) 2 mg Q15M PRN IM 04/23/18 15:15 (Ziagen) 600 mg DAILY PO 04/23/18 18:15 04/25/18 08:14 (Epivir) 300 mg DAILY PO 04/23/18 18:15 04/25/18 08:14 A/P Assessment and Plan 48-year-old male with HIV HAART med compliant, Hep C, ITP and COPD admitted to the med psych unit for Depakote overdose and hospitalist services consulted for assistance with medical management. Attempted suicide, intentional Depakote OD PTSD -Continue management per psychiatry Acute metabolic encephalopathy secondary to depakote toxicity/overdose -EKG reviewed, longest corrected QT is 461 ms, last QTc 429 -Valproic acid trended down from 112 to 37 -monitor for QT prolongation with serial EKGs -neuro checks -Patient now AAOx4, resolved Hyperammonemia, mild, secondary to above Ammonia level 41 -give dose 30ml lactulose x 1 -repeat ammonia level 40, consistent with patient's baseline THOMAS, secondary to dehydration -creatinine improved 1.36 to 1.05 s/p IVF -encourage oral hydration -avoid nephrotoxic agents Transaminitis, mild, secondary to depakote toxicity -avoid hepatotoxic agents -LFTs trending down Polysubstance abuse: Urine tox screen + benzos and cocaine -counseled on cessation -continue CIWA -continue on daily thiamine/MVI/folate -fall and seizure precautions Thrombocytopenia: No active bleeding noted -monitor for signs/sx bleeding. -stable -continue outpatient f/up with plant ecologist HIV, Hep C: allegedly last CD4 count is more than 700 -standard precautions -Continue HAART medications -Continue outpatient f/up COPD, not in acute exacerbation -monitor respiratory status -continue on bronchodilators -Pro Air as needed DVT prophylaxis: Low risk, ambulatory. Avoid chemoprophylaxis with thrombocytopenia. Discharge Planning The patient is medically stable for discharge. Continue outpatient f/up with infectious disease and hematology. Tamara Hicks PA-C Apr 25, 2018 2:30 pm
--- NOTE | 2018-04-25 15:41 | HHI.PYPN ---
Subjective Chief Complaint: Depakote overdose Remarks Patient seen for follow, chart reviewed. Discussion nursing staff reported the patient said been pleasant and cooperative staff, compliant with medications, valproic acid level has been decreasing. Patient was found lying in hospital bed noted be more reactive today with interview. Patient states they have been feeling a bit frustrated about how things have been going for him particularly not be able to resolve issues with his Social Security income as well as recently having had discord with girlfriend which led to a suicide attempt. He states that his mood has been feeling anxious wants to go home but could also worried about being stable prior to his discharge. He states that he wants to continue to live for his girlfriend and his daughter and to continue going to the beach when he enjoys. He states that his mood has been better although denying suicide ideations today feeling less depressed. Review of Systems Except as stated in HPI: all other systems reviewed are Neg Mental Status Examination Appearance: Disheveled Consciousness: Alert Orientation: x4 Motor Activity: Normal gait Speech: Unremarkable Language: Adequate Fund of Knowledge: Adequate Attention and Concentration: Adequate Memory: Unremarkable (Grossly intact on clinical exam) Mood: Sad Affect: Other (Restricted) Thought Process & Associations: Intact, Logical, Linear Thought Content: Appropriate Hallucination Type: None Delusion Type: None Suicidal Ideation: No (Unclear whether patient is reliable to contract for safety) Suicidal Plan: No Suicidal Intention: No Homicidal Ideation: No Homicidal Plan: No Homicidal Intention: No Insight: Fair Judgment: Impulsive Results Labs Labs reviewed Test 04/24/18 21:25 04/25/18 08:00 Valproic Acid (Depakene) Level 50 MCG/ML 37 MCG/ML White Blood Count 9.4 TH/MM3 Red Blood Count 6.12 MIL/MM3 Hemoglobin 18.5 GM/DL Hematocrit 54.0 % Mean Corpuscular Volume 88.3 FL Mean Corpuscular Hemoglobin 30.2 PG Mean Corpuscular Hemoglobin Concent 34.3 % Red Cell Distribution Width 13.9 % Platelet Count 121 TH/MM3 Mean Platelet Volume 10.3 FL Blood Urea Nitrogen 18 MG/DL Creatinine 1.12 MG/DL Random Glucose 126 MG/DL Total Protein 6.7 GM/DL Albumin 3.2 GM/DL Calcium Level 8.4 MG/DL Alkaline Phosphatase 156 U/L Aspartate Amino Transf (AST/SGOT) 34 U/L Alanine Aminotransferase (ALT/SGPT) 32 U/L Total Bilirubin 0.4 MG/DL Sodium Level 141 MEQ/L Potassium Level 3.8 MEQ/L Chloride Level 109 MEQ/L Carbon Dioxide Level 23.3 MEQ/L Anion Gap 9 MEQ/L Estimat Glomerular Filtration Rate 69 ML/MIN Ammonia 40 MCMOL/L Vitals/IOs Vital Signs Date Time Temp Pulse Resp B/P (MAP) Pulse Ox O2 Delivery O2 Flow Rate FiO2 04/25/18 10:30 98.5 67 16 133/82 (99) 94 04/23/18 16:21 Room Air 04/23/18 04:17 2.00 Intake and Output 04/25/18 04/25/18 04/26/18 08:00 16:00 00:00 Intake Total 480 ml 600 ml Balance 480 ml 600 ml Assessment & Plan Problem List: (1) Adjustment disorder with mixed disturbance of emotions and conduct ICD Codes: F43.25 - Adjustment disorder with mixed disturbance of emotions and conduct (2) Chronic post-traumatic stress disorder (PTSD) ICD Codes: F43.12 - Post-traumatic stress disorder, chronic Assessment & Plan Patient this time noted with improvement in mood, denying suicide ideations today and more reactive with affect today. Patient valproic acid level decreasing, continue recommendations as per prior medical team. Continue current treatment. Continue to monitor mood and behavior. Discharge planning a progress. Justification for Cont. Inpt. At risk of further decompensation a lower level of care. Request HC Surrog/Guard Advoc?: El Ruff MD Apr 25, 2018 15:41
[2018-04-25 18:47] VITALS: BP 130/85; PULSE 74; RESP 17; TEMP 98.3; O2SAT 95
[2018-04-25] MEDS: PRAZOSIN HCL 1 MG CAP PO SCH (21:00)
[2018-04-26 05:15] VITALS: BP 106/60; PULSE 60; RESP 17; TEMP 97.6; O2SAT 96
[2018-04-26] MEDS: THIAMINE HCL 100 MG TAB PO SCH (08:42)
[2018-04-26] MEDS: MULTIVITAMINS/MINERALS THERAPEUTIC TAB PO SCH (08:42)
[2018-04-26] MEDS: DOLUTEGRAVIR SODIUM 50 MG TAB PO SCH (08:42)
[2018-04-26] MEDS: ESCITALOPRAM OXALATE 10 MG TAB PO SCH (08:43)
[2018-04-26] MEDS: FOLIC ACID 1 MG TAB PO SCH (08:43)
[2018-04-26] MEDS: PANTOPRAZOLE SOD 40 MG DELAYED RELEASE TAB PO SCH (08:43)
[2018-04-26] MEDS: ABACAVIR SULFATE 300 MG TAB PO SCH (08:43)
[2018-04-26] MEDS: BUDESONIDE-FORMOTEROL 160/4.5 MCG INHALER INH SCH (08:43)
--- NOTE | 2018-04-26 13:27 | HHI.PR ---
Subjective Remarks Follow up for depakote overdose. The patient is seen ambulating the hallways. He has no medical complaints. Denies any headache, lightheadedness, dizziness, chest pain, shortness of breath, or abdominal complaints. He is AAOx4. Vital signs reviewed and stable. Objective Vitals Vital Signs Date Time Temp Pulse Resp B/P (MAP) Pulse Ox O2 Delivery O2 Flow Rate FiO2 04/26/18 05:15 97.6 60 17 106/60 (75) 96 04/25/18 18:47 98.3 74 17 130/85 (100) 95 I/O 04/25/18 04/25/18 04/25/18 04/26/18 04/26/18 04/26/18 07:00 15:00 23:00 07:00 15:00 23:00 Intake Total 1920 ml 600 ml 1200 ml 1440 ml Balance 1920 ml 600 ml 1200 ml 1440 ml Intake Oral 1920 ml 600 ml 1200 ml 1440 ml # Voids 2 2 Result Diagram: 04/25/18 0800 04/25/18 0800 Objective Remarks GENERAL: Well-nourished, well-developed middle-aged male patient in [facility]. SKIN: Warm and dry. No rash. HEENT: Normocephalic. Atraumatic. Pupils equal and round. Mucous membranes pink and moist. CARDIOVASCULAR: Regular rate and rhythm. No murmur appreciated. RESPIRATORY: No accessory muscle use. Clear to auscultation. Breath sounds equal bilaterally. GASTROINTESTINAL: Abdomen soft, non-tender, nondistended. Normoactive bowel sounds x4. MUSCULOSKELETAL: No obvious deformities. Extremities without clubbing, cyanosis , or edema. NEUROLOGICAL: Awake and alert. No obvious cranial nerve deficits. Motor grossly within normal limits. Moving all extremities spontaneously. Normal speech. Procedures None Medications and IVs Current Medications Medications (Trade) Dose Ordered Sig/Deanna Route Start Time Stop Time Status Last Admin (Proair Hfa Inh) 1 puff Q4H PRN INH 04/23/18 15:15 (Protonix) 40 mg DAILY PO 04/24/18 09:00 04/26/18 08:43 (Symbicort 160-4.5 Mcg Inh) 1 puff BID INH 04/23/18 21:00 04/26/18 08:43 (Benadryl) 50 mg HS PRN PO 04/23/18 15:15 (Tylenol) 650 mg Q4H PRN PO 04/23/18 15:15 (Milk Of Magnesia Liq) 30 ml DAILY PRN PO 04/23/18 15:15 (Mag-Al Plus Susp Liq) 30 ml Q6H PRN PO 04/23/18 15:15 (Habitrol 21 Mg Patch.24 Hr) 1 patch DAILY PRN T-DERMAL 04/23/18 15:15 (Atarax) 50 mg Q6H PRN PO 04/23/18 15:15 (Cogentin) 1 mg Q12H PRN PO 04/23/18 15:15 (Cogentin Inj) 1 mg Q12H PRN IM 04/23/18 15:15 (Lexapro) 10 mg DAILY PO 04/24/18 09:00 04/26/18 08:43 (Minipress) 1 mg HS PO 04/23/18 21:00 (Folate) 1 mg DAILY PO 04/24/18 09:00 04/29/18 08:59 04/26/18 08:43 (Vitamin B1) 100 mg DAILY PO 04/24/18 09:00 04/26/18 08:42 (Theragran M Tab) 1 tab DAILY PO 04/24/18 09:00 04/29/18 08:59 04/26/18 08:42 (Romazicon Inj) 0.2 mg Q1M PRN IV PUSH 04/23/18 15:15 (Ativan) 1 mg Q4H PRN PO 04/23/18 15:15 (Ativan Inj) 1 mg Q4H PRN IM 04/23/18 15:15 (Ativan) 2 mg Q2H PRN PO 04/23/18 15:15 (Ativan Inj) 2 mg Q2H PRN IM 04/23/18 15:15 (Ativan Inj) 2 mg Q1H PRN IM 04/23/18 15:15 (Ativan Inj) 2 mg Q15M PRN IM 04/23/18 15:15 (Ziagen) 600 mg DAILY PO 04/23/18 18:15 04/26/18 08:43 (Epivir) 300 mg DAILY PO 04/23/18 18:15 04/26/18 08:43 A/P Assessment and Plan 48-year-old male with HIV HAART med compliant, Hep C, ITP and COPD admitted to the med psych unit for Depakote overdose and hospitalist services consulted for assistance with medical management. Attempted suicide, intentional Depakote OD, PTSD -Continue management per psychiatry Acute metabolic encephalopathy secondary to depakote toxicity/overdose -EKG reviewed, longest corrected QT is 461 ms, last QTc 429 -Valproic acid trended down from 112 to 37 -monitor for QT prolongation with serial EKGs -neuro checks -Patient now AAOx4, resolved Hyperammonemia: mild, secondary to chronic liver disease, hepatitis C, with acute depakote overdose. Ammonia level 41 -given 30ml lactulose x 1 -repeat ammonia level 40, consistent with patient's baseline -patient AAOx4 -continue daily lactulose THOMAS, secondary to dehydration -creatinine improved 1.36 to 1.05 s/p IVF -encourage oral hydration -avoid nephrotoxic agents Transaminitis, mild, secondary chronic Hepatitis C in combination with acute depakote toxicity -avoid hepatotoxic agents -LFTs trended down, consistent with patient's baseline, stable Polysubstance abuse: Urine tox screen + benzos and cocaine -counseled on cessation -continue CIWA -continue on daily thiamine/MVI/folate -fall and seizure precautions Thrombocytopenia: No active bleeding noted -monitor for signs/sx bleeding. -stable -continue outpatient f/up with performance analyst HIV, Hep C: allegedly last CD4 count is more than 700 -standard precautions -Continue HAART medications -Continue outpatient f/up COPD, not in acute exacerbation -monitor respiratory status -continue on bronchodilators -Pro Air as needed DVT prophylaxis: Low risk, ambulatory. Avoid chemoprophylaxis with thrombocytopenia. Discharge Planning The patient is medically stable for discharge. Continue outpatient f/up with infectious disease and hematology. Tamara Hicks PA-C Apr 26, 2018 1:27 pm
[2018-04-26] MEDS ORDERED: ESCI10TA PO (13:56)
[2018-04-26 18:00] VITALS: BP 67/46; PULSE 61; RESP 17; TEMP 98; O2SAT 95
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
[2018-04-27] MEDS ORDERED: LACTULOSE SYRUP 20 GM/30 ML CUP PO SCH (09:00)
== END 2018-04-26 15:20 | disposition home or self-care (01) | DRG 882 ==
LOC: NEPC 03:44 → NEDA 15:10 → H4EA 17:00
PROVIDERS: ADMIT Student in an Organized Health Care Education/Training Program; ATTEND Student in an Organized Health Care Education/Training Program
DX: F43.25 Adjustment disorder with mixed disturbance of emotions and conduct (principal); G92 Toxic encephalopathy; N17.9 Acute kidney failure, unspecified; D69.3 Immune thrombocytopenic purpura; E72.20 Disorder of urea cycle metabolism, unspecified; E87.2 Acidosis; T42.6X2A Poisoning by other antiepileptic and sedative-hypnotic drugs, intentional self-harm, initial encounter; J44.9 Chronic obstructive pulmonary disease, unspecified; B18.2 Chronic viral hepatitis C; F43.12 Post-traumatic stress disorder, chronic; G47.30 Sleep apnea, unspecified; D72.829 Elevated white blood cell count, unspecified; E87.6 Hypokalemia; R94.31 Abnormal electrocardiogram [ECG] [EKG]; K29.70 Gastritis, unspecified, without bleeding; E86.0 Dehydration; R74.0 Nonspecific elevation of levels of transaminase and lactic acid dehydrogenase [LDH]; M51.26 Other intervertebral disc displacement, lumbar region; M19.90 Unspecified osteoarthritis, unspecified site; F17.210 Nicotine dependence, cigarettes, uncomplicated; Z21 Asymptomatic human immunodeficiency virus [HIV] infection status; Z65.3 Problems related to other legal circumstances; Z90.81 Acquired absence of spleen
CPT/HCPCS: 36600; 80053; 80061; 80164; 80307; 81001; 82140; 82805; 83036; 85025; 85027; 85610; 85730; 93005; 96360; 96361; J7030

== ENCOUNTER 2018-08-11 18:04 | Inpatient (IN) ==
[2018-08-11] MEDS ORDERED: Sod Chloride 0.9% Inj 1,000 ML IV.SIG ONE (18:43)
[2018-08-11] MEDS ORDERED: HYDROmorphone PF Inj 2 MG/ML Vial IV.PUSH ONE (18:43)
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
--- NOTE | 2018-08-11 19:38 | XR ---
EXAM DATE: 08/11/2018 6:43 PM EDT AGE/SEX: 48 years / Male INDICATIONS: . Cough. Short of breath. CLINICAL DATA: This is the patient's initial encounter. Patient reports that signs and symptoms have been present for 1 day and indicates a pain score of 0/10. MEDICAL/SURGICAL HISTORY: Chronic obstructive pulmonary disease. . COMPARISON: [facility] [place], CT ABDOMEN & PELVIS W/O CONTRAST, 03/17/2018. . FINDINGS: PA and lateral views of the chest demonstrate the lungs to be symmetrically aerated without evidence of mass, infiltrate or effusion. Mild interstitial prominence is stable. The cardiomediastinal contou rs are unremarkable. Osseous structures are intact. CONCLUSION: No acute findings. Mild fibrotic changes at the lung bases with some minimal atelectasis. Electronically signed by: Alexis Banks MD 08/11/2018 7:37 PM EDT
[2018-08-11 20:28] LABS: Baso % (Auto) 0.1 % (0.0-2.0); Eos % (Auto) 0.1 % (0.0-4.0); Hematocrit 55.2 % (39.0-51.0); Hemoglobin 18.7 gm/dL (13.0-17.0); Lymph # (Auto) 2.3 th/mm3 (1.0-4.8); Lymph % (Auto) 8.9 % (9.0-44.0); Mean Corpuscular HGB Conc 33.8 % (32.0-36.0); Mean Corpuscular Hemoglobin 30.6 pg (27.0-34.0); Mean Corpuscular Volume 90.3 fL (80.0-100.0); Mean Platelet Volume 10.3 fL (7.0-11.0); Mono # (Auto) 1.7 th/mm3 (0.0-0.9); Mono % (Auto) 6.4 % (0.0-8.0); Neut # (Auto) 22.3 th/mm3 (1.8-7.7); Neut % (Auto) 84.5 % (16.0-70.0); Red Blood Count 6.11 mil/mm3 (4.50-5.90); Red Cell Distribution Width 13.5 % (11.6-17.2); White Blood Count 26.4 th/mm3 (4.0-11.0)
[2018-08-11 20:32] LABS: Platelet Count 9 th/mm3 (150-450)
[2018-08-11 20:53] LABS: Tear Drop Cells 1+
[2018-08-11 20:56] LABS: Alanine Aminotransferase 60 U/L (12-78)
[2018-08-11 20:59] LABS: Albumin 2.8 g/dL (3.4-5.0); Alkaline Phosphatase 127 U/L (45-117); Anion Gap 15 meq/L (5-15); Aspartate Aminotransferase 90 U/L (15-37); Blood Urea Nitrogen 25 mg/dL (7-18); Calcium 8.3 mg/dL (8.5-10.1); Carbon Dioxide 20.3 meq/L (21.0-32.0); Chloride 97 meq/L (98-107); Creatine Kinase 389 U/L (39-308); Glomerular Filtration Rate 72 mL/min (>89); Glucose,Random 66 mg/dL (74-106); Potassium 4.5 meq/L (3.5-5.1); Sodium 132 meq/L (136-145); Total Protein 7.1 g/dL (6.4-8.2); Troponin I 0.08 ng/mL (0.02-0.05)
[2018-08-11 21:11] LABS: Creatine Kinase MB 7.9 ng/mL (0.5-3.6)
--- NOTE | 2018-08-11 21:25 | ECG ---
Date Performed: 08/11/2018 Time Performed: 20:21:05 PTAGE: 48 years EKG: Sinus rhythm POSSIBLE RIGHT ATRIAL ENLARGEMENT POSSIBLE LEFT ATRIAL ENLARGEMENT BORDERLINE RIGHT AXIS DEVIATION A NTEROSEPTAL MYOCARDIAL INFARCTION ABNORMAL ECG Compared to prior electrocardiogram, Rate has increase d. Additionally R wave progression is less prominent and T-wave changes more prominent. DOCTOR: Ismael Calderon Interpretating Date/Time 08/11/2018 21:24:23
[2018-08-11] MEDS ORDERED: Acetaminophen 325 MG Tablet PO PRN (21:38)
[2018-08-11 22:28] LABS: Bilirubin,Urine Negative (Negative); Clarity,Urine Clear (Clear); Color,Urine Yellow (Yellw/Straw); Glucose,Urine (UA) Negative (Negative); Hyaline Casts,Urine 3 /lpf (0-3); Leukocyte Esterase,Urine Negative (Negative); Nitrite,Urine Negative (Negative); Specific Gravity,Urine 1.014 (1.002-1.035); Urobilinogen,Urine 4 or Greater mg/dL (Less than 2)
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
[2018-08-11] MEDS: Sod Chloride 0.9% Inj 1,000 ML IV.CONT SCH (22:58)
[2018-08-12 02:09] LABS: Amphetamine Screen,Urine Neg (Neg); Barbiturate Screen,Urine Neg (Neg); Cannabinoid Screen,Urine Neg (Neg); Cocaine Screen,Urine Pos (Neg)
[2018-08-12 02:12] LABS: Opiate Screen,Urine Neg (Neg)
[2018-08-12 06:46] LABS: Baso % (Auto) 0.2 % (0.0-2.0); Eos # (Auto) 0.3 th/mm3 (0.0-0.4); Eos % (Auto) 1.5 % (0.0-4.0); Hematocrit 49.6 % (39.0-51.0); Hemoglobin 16.8 gm/dL (13.0-17.0); Lymph # (Auto) 2.6 th/mm3 (1.0-4.8); Lymph % (Auto) 14.5 % (9.0-44.0); Mean Corpuscular Hemoglobin 30.3 pg (27.0-34.0); Mean Corpuscular Volume 89.1 fL (80.0-100.0); Mean Platelet Volume 9.7 fL (7.0-11.0); Mono # (Auto) 1.9 th/mm3 (0.0-0.9); Mono % (Auto) 10.3 % (0.0-8.0); Neut # (Auto) 13.3 th/mm3 (1.8-7.7); Neut % (Auto) 73.5 % (16.0-70.0); Red Blood Count 5.56 mil/mm3 (4.50-5.90); Red Cell Distribution Width 13.6 % (11.6-17.2); White Blood Count 18.1 th/mm3 (4.0-11.0)
[2018-08-12 06:59] LABS: Anion Gap 8 meq/L (5-15); Blood Urea Nitrogen 20 mg/dL (7-18); Calcium 6.7 mg/dL (8.5-10.1); Carbon Dioxide 24.7 meq/L (21.0-32.0); Chloride 104 meq/L (98-107); Glomerular Filtration Rate Greater Than 89 mL/min (>89); Glucose,Random 93 mg/dL (74-106); Sodium 137 meq/L (136-145)
[2018-08-12 07:07] LABS: Platelet Count 13 th/mm3 (150-450)
[2018-08-12 07:15] LABS: Total Protein 5.8 g/dL (6.4-8.2)
[2018-08-12] MEDS: Sod Chloride 0.9% Inj 1,000 ML IV.CONT SCH ×4 (07:28→18:16)
[2018-08-12 08:30] LABS: Platelet Estimate Rare (Normal); Platelet Morphology Normal (Normal); RBC Morphology Normal (Normal)
[2018-08-12] MEDS: Gabapentin 300 MG Capsule PO SCH ×2 (08:50→20:28)
[2018-08-12] MEDS ORDERED: PAROXETINE HCL 10 MG PO SCH (09:00)
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
[2018-08-13] MEDS: Sod Chloride 0.9% Inj 1,000 ML IV.CONT SCH ×3 (03:42→23:32)
[2018-08-13] MEDS: Gabapentin 300 MG Capsule PO SCH ×2 (08:44→20:56)
[2018-08-13 12:28] LABS: Hematocrit 50.9 % (39.0-51.0); Mean Corpuscular HGB Conc 33.4 % (32.0-36.0); Mean Corpuscular Hemoglobin 30.2 pg (27.0-34.0); Mean Corpuscular Volume 90.3 fL (80.0-100.0); Mean Platelet Volume 10.6 fL (7.0-11.0); Platelet Count 41 th/mm3 (150-450); Red Blood Count 5.63 mil/mm3 (4.50-5.90); Red Cell Distribution Width 13.6 % (11.6-17.2); White Blood Count 14.9 th/mm3 (4.0-11.0)
[2018-08-13 13:10] LABS: Calcium 7.6 mg/dL (8.5-10.1); Carbon Dioxide 24.7 meq/L (21.0-32.0)
--- NOTE | 2018-08-13 13:59 | P.DIET ---
Nutritional Evaluation Type of nutrition evaluation: initial Nutrition screening: Weight Loss > 10 lbs Subjective Subjective Comments: Appetite is good. Pt is currently on [facility] hosp[facility] Objective - Diagnosis Bronchopneumonia, HIV, HCV, thrombocytopenia - Objective Mckenney body weight: 81 kg % IBW: 80 Body Weight Used for Calculations: Actual (64.1kg) Energy Needs - Lower Range (kCal/kg): 30 Energy Needs - Upper Range (kCal/kg): 35 Lower Limit kCal/kg (kCals): 1,923 Upper Limit kCal/kg (kCals): 2,244 Lower Limit Protein Factor (Grams per Kg): 1.2 Upper Limit Protein Factor (Grams per Kg): 1.5 Lower Protein Needs (Protein): 77 Upper Protein Needs (Protein): 96 Dietitian Reviewed in Medical Record: Current diet, Curent medications, Intake & Output, Labs, Medical history Diet Order: Regular Oral Diet Intake Amount: Good 75-90% Objective Comments: PMH Includes: fracture tibia/fibula shaft, GI bleed, HIV disease, Liver Cirrhosis, Wasting Syndrome, Neuropathy Assessment Assessment: Pt is at nutritional risk r/t recent unintentional wt loss and diagnosis. Pt is on [facility] hospice care and desires comfort measures. Please Consult RD if Needed. Recommendations: Please Consult RD if Needed.
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
[2018-08-14 08:34] VITALS: BP 123/81; RESP 18; TEMP 97.8; O2SAT 94
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
[2018-08-14] MEDS: Gabapentin 300 MG Capsule PO SCH (09:28)
[2018-08-14] MEDS: Sod Chloride 0.9% Inj 1,000 ML IV.CONT SCH (09:28)
[2018-08-14 14:42] VITALS: PULSE 56
== END 2018-08-14 10:09 | disposition hospice, home (50) ==
LOC: NEPC 18:04 → NEDA 21:41 → N04 22:20
PROVIDERS: ADMIT Internal Medicine; ATTEND Internal Medicine